=== PATIENT | male | born 1950 | race Caucasian/White ===

== ENCOUNTER 2023-04-02 06:13 | Day surgery (SDC) | payer MEDICARE, SELFPAY ==
[2023-04-02 06:40] VITALS: BMI 29.6
[2023-04-02 06:41] VITALS: BP 129/64; PULSE 65; RESP 18; TEMP 36.6; O2SAT 98
[2023-04-02 06:57] LABS: Glucose, Whole Blood 80 mg/dL (60-115)
[2023-04-02] MEDS: Lactated Ringers 1,000 ML 50 ML IVCONT (07:09)
--- NOTE | 2023-04-02 07:23 | P.CONAN_ITS ---
HPI - Anesthesia Eval Consult details Narrative: for colonoscopy FORMERLY [facility], [facility] Past Medical History Medical History (Updated 04/01/23 @ 13:43 by Ania Jaffe RN) CAD (coronary artery disease) Colon polyps Hyperlipidemia Prostate cancer Type 2 diabetes mellitus Narrative: CAD stable since stent. Last NTG a couple mo ago. Family History Family history of problems with anesthesia: No Surgical History Surgical History (Updated 04/02/23 @ 07:01 by Nadege Brennan RN) H/O colonoscopy History of tonsillectomy and adenoidectomy Hx of appendectomy Hx of wisdom tooth extraction Stented coronary artery History of Problems with Anesthesia: No Social History Social History Patient Tobacco Use Status: Never used Tobacco Are you DNR?: No Advance Directives: No Advance Directives Information Provided: Yes Meds Allergies Allergy/AdvReac Type Severity Reaction Status Date / Time cephalexin [From Keflex] Allergy Unknown Verified 04/01/23 13:43 Penicillins [PCN] Allergy Unknown Verified 04/01/23 13:43 Active Medications: Current Medications Lactated Ringer's (Lr) 1,000 mls @ 50 mls/hr IVCONT .Q20H ANABELLA Last Admin: 04/02/23 07:09 Dose: 50 mls/hr Home Medications Medication Instructions Recorded Confirmed Last Taken Type alfuzosin 10 mg tablet,extended 20 mg PO DAILY 04/01/23 04/01/23 04/02/23 History release 24 hr clopidogrel 75 mg tablet 75 mg PO DAILY 04/01/23 04/01/23 03/26/23 History cyanocobalamin (vitamin B-12) 1,000 mcg PO DAILY 04/01/23 04/01/23 Unknown History 1,000 mcg tablet fluticasone propionate 50 1 spray intranasal DAILY 04/01/23 04/01/23 Unknown History mcg/actuation nasal spray,suspension glimepiride 1 mg tablet 1 mg PO BID 04/01/23 04/01/23 Unknown History isosorbide mononitrate 30 mg 15 mg PO QAM 04/01/23 04/01/23 Unknown History tablet,extended release 24 hr metformin 500 mg tablet 500 mg PO BID 04/01/23 04/01/23 Unknown History metoprolol succinate 25 mg 12.5 mg PO DAILY 04/01/23 04/01/23 04/02/23 History tablet,extended release 24 hr nitroglycerin 0.4 mg sublingual mg sublingual 04/01/23 Unknown History tablet pravastatin 10 mg tablet 10 mg PO DAILY 04/01/23 04/01/23 Unknown History triamcinolone acetonide 0.1 % appl topical BID 04/01/23 Unknown History topical cream aspirin 81 mg tablet,delayed mg 04/02/23 04/02/23 03/26/23 History release Exam Exam Date and Time: April 02, 202323 Height,Weight and Vital Signs: Height 5 ft 10 in Weight 93.44 kg Last Vital Signs Temp 98 F 04/02/23 06:41 Pulse 65 04/02/23 06:41 Resp 18 04/02/23 06:41 BP 129/64 04/02/23 06:41 Pulse Ox 98 04/02/23 06:41 O2 Del Method Room Air 04/02/23 06:41 Pertinent Lab Results Pertinent Lab Results: Laboratory Tests 04/02/23 06:53 POC Glucose 80 Airway Mallampati Class: II TM Dist: >3cm Neck ROM: Full Partial: Lower Heart: ok. Lungs: ok. Assessment and Plan Assessment Anesthesia Assessment: Anesthesia Plan Discussed and Chart Reviewed Final Anesthetic Review Family History of Problems with Anesthesia: No History of Problems with Anesthesia: No NPO: Yes ASA Class: III Final Preanesthetic Review: No Changes in Pt Med Stat, Meds/Allgs Chart Reviewed, Consent Obtained/Reviewed and Anes Risks/Benef Reviewed Patient Risk: High Procedure Risk: Low Anesthetic Plan Anesthetic Plan: MAC: and Agree w/ Assess. and Plan Disposition: Standard PACU
--- NOTE | 2023-04-02 07:29 | P.HPSUR_ITS ---
Pre-Procedural Eval Section A Date of Service: 04/02/23 Section B Chief Complaint: screening Details of Present Illness: see H&P no changes Relevant Family History (Specify if Yes): No Relevant Social History: None Present Medications: None Medical History: No relevant PMH History of Previous Operations: No relevant previous surgery Allergies: Allergies Allergy/AdvReac Type Severity Reaction Status Date / Time cephalexin [From Keflex] Allergy Unknown Verified 04/01/23 13:43 Penicillins [PCN] Allergy Unknown Verified 04/01/23 13:43 Review of Systems Sugical H&P ROS: Negative: Constitution, Cardiovascular, Respiratory, Neurolog ical, Psychiatric, Hem-Onc, Allergic/Immunologic, Gastrointestinal, Genitourinary, Musculoskeletal, Integumentary, Endocrine and Eyes/Ears/Nose/Throat Exam Surgical H&P Exam: Normal: HEENT, Normal: Heart, Normal: Lungs, Normal: Extremities, Normal: Abdomen, Normal: Skin and Normal: Neurological Plan Diagnosis/Plan: Unchanged I have reviewed the history and physical and performed a pertinent physical examination on my patient. No changes have occurred unless specified. Time Spent With Patient Time: Total time managing care of this patient today ____ minutes.
--- NOTE | 2023-04-02 07:54 | P.BOP_ITS ---
Brief Operative Note Date of Service: 04/02/23 Pre-op diagnosis: screening Post-op diagnosis: same Procedure: colonoscopy Surgeon: Brent Zuleta Anesthesia: MAC Was an Shuttlecock Assembler used for this Procedure?: No Estimated blood loss (mL): 0 Pathology: other Condition: stable Disposition: PACU
[2023-04-02 07:59] VITALS: BP 106/50; PULSE 56; RESP 18; TEMP 36.9; O2SAT 96
[2023-04-02 08:13] VITALS: BP 119/61; PULSE 60; RESP 17; TEMP 36.7; O2SAT 96
--- NOTE | 2023-04-02 08:19 | OP_ITS ---
DATE OF SERVICE: 04/02/2023 SURGEON: Brent Zuleta MD INDICATIONS: Colon cancer screening and prior history of adenomatous colon polyps. PREOPERATIVE DIAGNOSIS: POSTOPERATIVE DIAGNOSIS: PROCEDURE PERFORMED: Colonoscopy to terminal ileum. ESTIMATED BLOOD LOSS: COMPLICATIONS: ANESTHESIA: Monitored anesthesia care. ASSISTANTS: SPECIMENS: DESCRIPTION OF PROCEDURE: A history and physical were performed. The risks and benefits of the procedure were explained to the patient. Informed consent was obtained. The patient was placed in the left lateral decubitus position. A digital rectal exam was performed and was found to be normal. The Olympus pediatric video colonoscope was introduced into the rectum and advanced to the cecum without difficulty. The cecum was identified by transillumination, palpation, and identification of ileocecal valve. Examination was performed. The scope was removed. He tolerated the procedure well and was returned to the recovery room in stable condition. FINDINGS: The terminal ileum was examined and appeared normal. Visualized colonic mucosa was normal. The quality of the prep was good. No polyps were identified. There were changes of radiation proctitis from his prior external beam radiation for prostate cancer with no active bleeding. No therapy was performed. There was mild sigmoid diverticulosis. IMPRESSION: Unremarkable colonoscopy. RECOMMENDATION: 1. Follow up as needed. 2. Repeat colonoscopy is optional based on the patient's age. MD YENNY Cowan/MERI / [phone]
== END 2023-04-02 09:30 | disposition home or self-care (01) ==
PROVIDERS: PCP Internal Medicine; Visit Provider Internal Medicine Gastroenterology
PROC: 0DJD8ZZ Inspection of Lower Intestinal Tract, Via Natural or Artificial Opening Endoscopic (ICD-10-PCS; CPT 45378; principal; 2023-04-02 07:30)
DX: Z12.11 Encounter for screening for malignant neoplasm of colon (principal); Z86.010 Personal history of colon polyps; C61 Malignant neoplasm of prostate; K62.7 Radiation proctitis; K57.30 Diverticulosis of large intestine without perforation or abscess without bleeding; I25.10 Atherosclerotic heart disease of native coronary artery without angina pectoris; Z95.5 Presence of coronary angioplasty implant and graft; E78.5 Hyperlipidemia, unspecified; E11.9 Type 2 diabetes mellitus without complications; Z79.84 Long term (current) use of oral hypoglycemic drugs; Z79.01 Long term (current) use of anticoagulants; Z79.82 Long term (current) use of aspirin; Z79.899 Other long term (current) drug therapy; Z88.0 Allergy status to penicillin; Z88.1 Allergy status to other antibiotic agents
CPT/HCPCS: G0105; 82947; J0330

== ENCOUNTER 2023-12-04 14:30 | Outpatient (AMB) | payer MEDICARE, SELFPAY ==
--- NOTE | 2023-12-04 14:42 | MHC.OFFVIS ---
Intake Intake Visit Reasons: Re-establish care for Prostate Cancer Intake Note: NEW Patient presents today to re-establish care for Prostate Cancer Meds- Alfuzosin, Allergies to Antibiotic- Cephalexin, Penicillins Blood Thinner- Aspirin Patient stated he feels pressure pain when he touch the Lower abdomen ( bladder area) Dining Room Helper Required: No Accompanied by: Self / Same As Patient Allergies cephalexin [From Keflex] Allergy (Verified 12/04/23 14:53) Unknown Penicillins [PCN] Allergy (Verified 12/04/23 14:53) Unknown HPI HPI Comments History of Present Illness Details Mickey is a pleasant male. He is a patient of . He is seen for the following urologic conditions - prostate cancer - radiation cystitis with urgency and frequency Primary concern is bladder spasm Has nocturia times 3-4 Urinary urgency and frequency during the day Likely secondary to radiation cystitis Trial anticholinergic UA today negative blood, negative leukocytes, negative nitrites. No evidence of infection Prostate cancer - grade group 3 T3 disease on MRI initial therapy external beam radiation 03/20 DFCI PSA at diagnosis 6.5 MRI at diagnosis 3 cm peripheral zone midline PI-RADS 5 with seminal vesicle extension Biopsy 09/20 7 cores positive, [place] 3 + 4 Initial therapy - EXBRT 03/20 7920 Gy prostate [address] Ashton - concurrent hormone therapy - therapy course halted early secondary to cardiac manifestations of hormone suppression PSA - 11/22 0.26 T 360 PFSH Medical History (Updated 12/04/23 @ 15:19 by Ric Romero MD) Colon polyps Hyperlipidemia Type 2 diabetes mellitus CAD (coronary artery disease) Prostate cancer Surgical History Hx of wisdom tooth extraction History of tonsillectomy and adenoidectomy Hx of appendectomy Stented coronary artery H/O colonoscopy Social History Patient Tobacco Use Status: Never used Tobacco Review of Systems Const Denies chills and Denies fever(s) Card Reports no additional complaints and Denies syncope Resp Denies cough GI Denies abdominal pain and Denies heartburn Reports as per HPI and Denies change in libido Neuro Denies syncope Psych Denies change in libido Endo Denies change in libido Physical Exam Const General: cooperative, healthy appearing, comfortable and no acute distress Orientation/consciousness: patient oriented x3 HEENT Face and sinus: Yes normal facial exam Mouth: moist mucous membranes Neck Neck: Yes normal visual inspection, Yes full ROM and Yes trachea midline Chest Chest palpation & inspection: normal inspection of the chest Resp Effort & Inspection: normal respiratory effort, able to speak in complete sentences and no respiratory distress GI Inspection: Yes normal to inspection Back/Spine/Pelvis Cervical Spine: normal cervical lordosis Thoracic/Lumbar Spine: thoracic and lumbar spine normal to inspection Skin General skin exam: no rashes or lesions noted Neuro General: patient oriented x3, gait normal, tone normal and moves all extremities Extrem General: Yes normal to inspection and Yes capillary refill normal Results AMB Urinalysis, Automated UA Leukoctes 0 Freddy/uL Last Edit by Sara Peralta CMA on 12/04/23 14:56 UA Nitrite Negative Last Edit by Sara Peralta CMA on 12/04/23 14:56 UA Urobilinogen 0.2 mg/dL Last Edit by Sara Peralta CMA on 12/04/23 14:56 UA Protein 0 mg/dL Last Edit by Sara Peralta CMA on 12/04/23 14:56 UA pH 7.0 Last Edit by Sara Peralta CMA on 12/04/23 14:56 UA Blood 0 Chuy/uL Last Edit by Sara ePralta CMA on 12/04/23 14:56 UA Specific [place] 1.005 Last Edit by Sara Peralta CMA on 12/04/23 14:56 UA Ketone Negative Last Edit by Sara Peralta CMA on 12/04/23 14:56 UA Bilirubin 0 mg/dL Last Edit by Sara Peralta CMA on 12/04/23 14:56 UA Glucose 0 mg/dL Last Edit by Sara Peralta [facility] on 12/04/23 14:56 Results Reviewed Results Reviewed: Laboratory Last Values Urine pH (Auto) 7.0 12/04/23 14:54 Specific [place] (Auto) 1.005 12/04/23 14:54 Urine Protein (Auto) 0 mg/dL 12/04/23 14:54 Glucose (UA)(Auto) 0 mg/dL 12/04/23 14:54 Urine Ketones (Auto) Negative 12/04/23 14:54 Urine Blood (Auto) 0 Chuy/uL 12/04/23 14:54 Urine Nitrite (Auto) Negative 12/04/23 14:54 Urine Bilirubin (Auto) 0 mg/dL 12/04/23 14:54 Urine Urobilinogen (Auto) 0.2 mg/dL 12/04/23 14:54 Leukocyte Esterase (Auto) 0 Freddy/uL 12/04/23 14:54 Assessment & Plan Assessment & Plan (1) Prostate cancer: Code(s): C61 - Malignant neoplasm of prostate (2) Nocturia more than twice per night: Code(s): R35.1 - Nocturia (3) Urinary urgency: Code(s): R39.15 - Urgency of urination Plan Trial anticholinergic for bladder spasm 2 month follow-up PVR and UA Orders: Orders AMB Urinalysis Automated Today R33.9 - Retention of urine, unspecified Medications: New oxybutynin chloride ER 5 mg PO DAILY 30 days 30 tabs 1RF N32.81 - Overactive bladder, R39.15 - Urgency of urination Patient Instructions: Imaging studies, laboratory and physical exam results were discussed and reviewed in detail. No major barriers to patient understanding were identified. An opportunity to ask questions regarding the treatment plan was provided. All questions were answered. The patient expressed understanding and agreement with the above treatment plan. The patient is aware they should contact our office by phone for worsening of their current condition or the appearance of new urologic symptoms. Compliance is encouraged with any medications and followup testing that is ordered. It is a privilege to participate in the urologic care of your patient. If you have any questions or concerns regarding treatment for the above conditions, or other urologic issues, please do not hesitate to contact me. The office telephone contact is [phone]. This note is constructed using voice recognition software. While every effort has been made to ensure accuracy sausage wrapper errors may have been included. Yours sincerely, Dr Ric Romero MD, PEDRO [facility] - Urology Providers of Expert, Compassionate Care for the Genitourinary System Coding Level of Care Code New Pt Level 4 (43115) Diagnoses Prostate cancer C61 Nocturia more than twice per night R35.1 Urinary urgency R39.15
== END 2023-12-04 15:21 | disposition home or self-care (01) ==
PROVIDERS: PCP Internal Medicine; Visit Provider Urology
DX: C61 Malignant neoplasm of prostate (principal); R35.1 Nocturia; R39.15 Urgency of urination; R33.9 Retention of urine, unspecified
CPT/HCPCS: 99204

== ENCOUNTER → 2023-12-04 14:30 | Outpatient (BNVA) | payer MEDICARE, SELFPAY | PROVIDERS: PCP Internal Medicine; Visit Provider Urology | DX: C61 Malignant neoplasm of prostate (principal); R35.1 Nocturia; R39.15 Urgency of urination | CPT/HCPCS: 81003; 99202 ==

== ENCOUNTER 2024-02-04 10:32 | Outpatient (AMB) | payer MEDICARE, SELFPAY ==
--- NOTE | 2024-02-04 11:10 | MHC.OFFVIS ---
Intake Visit Reasons: Two month follow-up UA, PVR Intake Note: Patient is Present for PVR/ Urology Med: Oxybutynin Antibiotic Allergy: Pencillins, Cephalexin Blood Thinner: Aspirin, Clopidogrel Todays PVR: 0 Patient is requesting a refill on oxybutynin states the medication is working. Patient would also like to have the Dosage higer Allergies cephalexin [From Keflex] Allergy (Verified 12/04/23 14:53) Unknown Penicillins [PCN] Allergy (Verified 12/04/23 14:53) Unknown Medication List - Last Reconciled 02/04/24 by Ric Romero MD alfuzosin ER 20 mg PO DAILY aspirin mg clopidogrel 75 mg PO DAILY cyanocobalamin (vitamin B-12) 1,000 mcg PO DAILY fluticasone propionate 50 mcg/actuation 1 spray intranasal DAILY glimepiride 1 mg PO BID isosorbide mononitrate ER 15 mg PO QAM metformin 500 mg PO BID metoprolol succinate ER 12.5 mg PO DAILY nitroglycerin mg sublingual oxybutynin chloride ER 10 mg PO DAILY 90 days pravastatin 10 mg PO DAILY triamcinolone acetonide 0.1% appl topical BID HPI Comments Details: Mickey is a pleasant male. He is a patient of . He is seen for the following urologic conditions - prostate cancer - radiation cystitis with urgency and frequency - background diabetes Good effect from medication Would prefer higher dose Refill with 10 mg Follow-up from trial of anticholinergic Nocturia 3-4 Urge and frequency during the day Presumed radiation cystitis UA today negative blood, negative leukocytes, negative nitrites. No evidence of infection Prostate cancer - grade group 3 T3 disease on MRI initial therapy external beam radiation 03/20 DFCI PSA at diagnosis 6.5 MRI at diagnosis 3 cm peripheral zone midline PI-RADS 5 with seminal vesicle extension Biopsy 09/20 7 cores positive, [place] 3 + 4 Initial therapy - EXBRT 03/20 7920 Gy prostate [address] Ashton - concurrent hormone therapy - therapy course halted early secondary to cardiac manifestations of hormone suppression PSA - 11/22 0.26 T 360 PFSH Medical History (Updated 12/04/23 @ 15:19 by Ric Romero MD) Colon polyps Hyperlipidemia Type 2 diabetes mellitus CAD (coronary artery disease) Prostate cancer Surgical History Hx of wisdom tooth extraction History of tonsillectomy and adenoidectomy Hx of appendectomy Stented coronary artery H/O colonoscopy Social History Patient Tobacco Use Status: Never used Tobacco Review of Systems Const Denies chills and Denies fever(s) Card Reports no additional complaints and Denies syncope Resp Denies cough GI Denies abdominal pain and Denies heartburn Reports as per HPI and Denies change in libido Neuro Denies syncope Psych Denies change in libido Endo Denies change in libido Physical Exam Const General: cooperative, healthy appearing, comfortable and no acute distress Orientation/consciousness: patient oriented x3 HEENT Face and sinus: Yes normal facial exam Mouth: moist mucous membranes Neck Neck: Yes normal visual inspection, Yes full ROM and Yes trachea midline Chest Chest palpation & inspection: normal inspection of the chest Resp Effort & Inspection: normal respiratory effort, able to speak in complete sentences and no respiratory distress GI Inspection: Yes normal to inspection Back/Spine/Pelvis Cervical Spine: normal cervical lordosis Thoracic/Lumbar Spine: thoracic and lumbar spine normal to inspection Skin General skin exam: no rashes or lesions noted Neuro General: patient oriented x3, gait normal, tone normal and moves all extremities Extrem General: Yes normal to inspection and Yes capillary refill normal Office Procedures Post Void Residual Post Residual Void Post Void Residual (PVR): 0 [id number] Void Residual by ultrasound Assessment & Plan Assessment & Plan (1) Urinary urgency: Code(s): R39.15 - Urgency of urination Category: Medical (2) Prostate cancer: Code(s): C61 - Malignant neoplasm of prostate Category: Medical Plan Six-month follow-up on stronger dose oxybutynin Orders: Orders AMB Post Void Residual by ultrasound Today R39.15 - Urgency of urination Medications: Changed From oxybutynin chloride ER 5 mg PO DAILY 30 days 30 tabs 1RF N32.81 - Overactive bladder, R39.15 - Urgency of urination To oxybutynin chloride ER 10 mg PO DAILY 90 days 90 tabs 1RF N32.81 - Overactive bladder, R39.15 - Urgency of urination Patient Instructions: Imaging studies, laboratory and physical exam results were discussed and reviewed in detail. No major barriers to patient understanding were identified. An opportunity to ask questions regarding the treatment plan was provided. All questions were answered. The patient expressed understanding and agreement with the above treatment plan. The patient is aware they should contact our office by phone for worsening of their current condition or the appearance of new urologic symptoms. Compliance is encouraged with any medications and followup testing that is ordered. It is a privilege to participate in the urologic care of your patient. If you have any questions or concerns regarding treatment for the above conditions, or other urologic issues, please do not hesitate to contact me. The office telephone contact is [phone]. This note is constructed using voice recognition software. While every effort has been made to ensure accuracy bean sprout grower errors may have been included. Yours sincerely, Dr Ric Romero MD, PEDRO [facility] - Urology Providers of Expert, Compassionate Care for the Genitourinary System Coding Level of Care Code Est Pt Level 3 (65908) Diagnoses Urinary urgency R39.15 Prostate cancer C61 CPT Codes Post Residual Void - PVR CPT Code: 12101-Udsu Void Residual by ultrasound ([id number])
== END 2024-02-04 11:28 | disposition home or self-care (01) ==
PROVIDERS: PCP Internal Medicine; Visit Provider Urology
DX: R39.15 Urgency of urination (principal); C61 Malignant neoplasm of prostate
CPT/HCPCS: 99213

== ENCOUNTER → 2024-02-04 10:32 | Outpatient (BNVA) | payer MEDICARE, SELFPAY | PROVIDERS: PCP Internal Medicine; Visit Provider Urology | DX: R39.15 Urgency of urination (principal); C61 Malignant neoplasm of prostate; N32.81 Overactive bladder; Z79.899 Other long term (current) drug therapy | CPT/HCPCS: 51798; 99212 ==

== ENCOUNTER 2024-08-06 10:33 | Outpatient (AMB) | payer MEDICARE, SELFPAY ==
--- NOTE | 2024-08-06 10:33 | MHC.OFFVIS ---
Intake Visit Reasons: 1yr/PVR [phone] Intake Note: Patient is Present for 1Y PVR Urology Med: Oxybutynin Antibiotic Allergy: Pencillins, Cephalexin Blood Thinner: Aspirin, Clopidogrel Sr. Operations Manager Required: No Allergies cephalexin [From Keflex] Allergy (Verified 08/06/24 10:35) Unknown Penicillins [PCN] Allergy (Verified 08/06/24 10:35) Unknown HPI Comments Details: Mickey is a pleasant male. He is a patient of . He is seen for the following urologic conditions - prostate cancer - radiation cystitis with urgency and frequency - background diabetes Telemedicine Evaluation 15 min Consultation Flynn Efra Video Good effect from medication Will stay on higher 10 mg dosage of alfuzosin b.i.d. Has combination urgency frequency with weakness of stream secondary to radiation cystitis with diabetic cystopathy Follow-up from trial of anticholinergic Nocturia 3 down from 6 Urge and frequency during the day Presumed radiation cystitis UA today negative blood, negative leukocytes, negative nitrites. No evidence of infection Prostate cancer - grade group 3 T3 disease on MRI initial therapy external beam radiation 03/20 DFCI PSA at diagnosis 6.5 MRI at diagnosis 3 cm peripheral zone midline PI-RADS 5 with seminal vesicle extension Biopsy 09/20 7 cores positive, [place] 3 + 4 Initial therapy - EXBRT 03/20 7920 Gy prostate [address] Ashton - concurrent hormone therapy - therapy course halted early secondary to cardiac manifestations of hormone suppression PSA - 11/22 0.26 T 360, 02/23 PSA stable PFSH Medical History (Updated 12/04/23 @ 15:19 by Ric Romero MD) Colon polyps Hyperlipidemia Type 2 diabetes mellitus CAD (coronary artery disease) Prostate cancer Surgical History Hx of wisdom tooth extraction History of tonsillectomy and adenoidectomy Hx of appendectomy Stented coronary artery H/O colonoscopy Social History Patient Tobacco Use Status: Never used Tobacco Review of Systems Const All systems reviewed & are unremarkable except as noted in HPI and below Reports no additional complaints Resp Reports no additional complaints GI Reports no additional complaints Reports as per HPI Musc Reports no additional complaints Physical Exam Telemedicine evaluation Appropriate responses Regular breathing rate and rhythm HEENT Head: Yes normal to inspection Ears: hearing grossly normal bilaterally Eyes General: appearance normal, both eyes and all related structures Neck Neck: Yes normal visual inspection Chest Chest palpation & inspection: normal inspection of the chest Resp Effort & Inspection: normal respiratory effort and able to speak in complete sentences Telehealth Telehealth Telehealth Platform: Flynn Location of provider rendering services: practice address Location of patient: address on file Patient Identification confirmed using: Name, : Yes Telehealth method: video Patient verbally consented to treatment: Yes Patient verbally consented to billing insurance company: Yes Patient informed of any privacy concerns related to visit: Yes Minutes spent on Phone/Video with Pt.: 15 Assessment & Plan Assessment & Plan (1) Prostate cancer: Code(s): C61 - Malignant neoplasm of prostate Category: Medical (2) Urinary urgency: Code(s): R39.15 - Urgency of urination Category: Medical (3) Nocturia more than twice per night: Code(s): R35.1 - Nocturia Category: Medical Plan Six-month follow-up PVR Orders: Orders Prostate Specific Antigen 6 Months C61 - Malignant neoplasm of prostate Medications: Changed From alfuzosin ER 20 mg PO DAILY To alfuzosin ER 10 mg PO BID 180 tabs 1RF 90 days Refilled oxybutynin chloride ER 10 mg PO DAILY 90 tabs 1RF 90 days N32.81 - Overactive bladder, R39.15 - Urgency of urination Patient Instructions: Imaging studies, laboratory and physical exam results were discussed and reviewed in detail. No major barriers to patient understanding were identified. An opportunity to ask questions regarding the treatment plan was provided. All questions were answered. The patient expressed understanding and agreement with the above treatment plan. The patient is aware they should contact our office by phone for worsening of their current condition or the appearance of new urologic symptoms. Compliance is encouraged with any medications and followup testing that is ordered. It is a privilege to participate in the urologic care of your patient. If you have any questions or concerns regarding treatment for the above conditions, or other urologic issues, please do not hesitate to contact me. The office telephone contact is [phone]. This note is constructed using voice recognition software. While every effort has been made to ensure accuracy interior mechanic errors may have been included. Yours sincerely, Dr Ric Romero MD, PEDRO [facility] - Urology Providers of Expert, Compassionate Care for the Genitourinary System Coding Level of Care Code Tele Est Pt Level 3 (71062) Diagnoses Prostate cancer C61 Urinary urgency R39.15 Nocturia more than twice per night R35.1
== END 2024-08-06 13:45 | disposition home or self-care (01) ==
LOC: HO.HUSH 10:33
PROVIDERS: PCP Internal Medicine; Visit Provider Urology
DX: C61 Malignant neoplasm of prostate (principal); R39.15 Urgency of urination; R35.1 Nocturia
CPT/HCPCS: 99213

== ENCOUNTER → 2024-08-06 10:33 | Outpatient (BNVA) | payer MEDICARE, SELFPAY | PROVIDERS: PCP Internal Medicine; Visit Provider Urology ==

== ENCOUNTER 2025-02-05 09:31 | Outpatient (AMB) | payer MEDICARE, SELFPAY ==
--- NOTE | 2025-02-05 09:35 | A.OFFVIS_ITS ---
Intake Visit Reasons: 6m f/u office PVR Intake Note: Patient is Present for 6 month follow up/PVR Urology Med: Oxybutynin Antibiotic Allergy: Pencillins, Cephalexin Blood Thinner: Aspirin, Clopidogrel PVR:54ml Allergies cephalexin [From Keflex] Allergy (Verified 02/05/25 09:41) Unknown Penicillins [PCN] Allergy (Verified 02/05/25 09:41) Unknown HPI Comments Details: Mickey is a pleasant male. He is a patient of . He is seen for the following urologic conditions - prostate cancer - radiation cystitis with urgency and frequency - background diabetes Six-month follow-up Remains on alfuzosin 10 mg b.i.d. Has combination urgency frequency with weakness of stream secondary to radiation cystitis with diabetic cystopathy Urge and frequency during the day Presumed radiation cystitis Will add beta agonist such as Myrbetriq or Gemtesa Urinary Symptoms Review - Weak urine stream due to diabetic cystopathy. - Urgency issues managed with alfuzosin and oxybutynin. - Nocturia with the patient waking up three times per night, which is an improvement from six times. - Radiative cystitis causing irritability in the bladder. - Use of alfuzosin 10 mg twice daily and oxybutynin 10 mg once daily. - Blood presence due to anticoagulation therapy could exacerbate irritability. UA today negative blood, negative leukocytes, negative nitrites. No evidence of infection Consider checking testosterone at next lab work Prostate cancer - grade group 3 T3 disease on MRI initial therapy external beam radiation 03/20 DFCI PSA at diagnosis 6.5 MRI at diagnosis 3 cm peripheral zone midline PI-RADS 5 with seminal vesicle extension Biopsy 09/20 7 cores positive, [place] 3 + 4 Initial therapy - EXBRT 03/20 7920 Gy prostate 5040 Gy pelvis [facility] - concurrent hormone therapy - therapy course halted early secondary to cardiac manifestations of hormone suppression PSA - 11/22 0.26 T 360, 02/23 PSA stable PFSH Medical History Colon polyps Hyperlipidemia Type 2 diabetes mellitus CAD (coronary artery disease) Prostate cancer Surgical History Hx of wisdom tooth extraction History of tonsillectomy and adenoidectomy Hx of appendectomy Stented coronary artery H/O colonoscopy Social History Patient Tobacco Use Status: Never used Tobacco Review of Systems Const Denies chills and Denies fever(s) Card Reports no additional complaints and Denies syncope Resp Denies cough GI Denies abdominal pain and Denies heartburn Reports as per HPI and Denies change in libido Neuro Denies syncope Psych Denies change in libido Endo Denies change in libido Physical Exam Const General: cooperative, healthy appearing, comfortable and no acute distress Orientation/consciousness: patient oriented x3 HEENT Face and sinus: Yes normal facial exam Mouth: moist mucous membranes Neck Neck: Yes normal visual inspection, Yes full ROM and Yes trachea midline Chest Chest palpation & inspection: normal inspection of the chest Resp Effort & Inspection: normal respiratory effort, able to speak in complete sentences and no respiratory distress GI Inspection: Yes normal to inspection Back/Spine/Pelvis Cervical Spine: normal cervical lordosis Thoracic/Lumbar Spine: thoracic and lumbar spine normal to inspection Skin General skin exam: no rashes or lesions noted Neuro General: patient oriented x3, gait normal, tone normal and moves all extremities Extrem General: Yes normal to inspection and Yes capillary refill normal Assessment & Plan Assessment & Plan (1) Prostate cancer: Code(s): C61 - Malignant neoplasm of prostate Category: Medical (2) Urinary urgency: Code(s): R39.15 - Urgency of urination Category: Medical (3) Nocturia more than twice per night: Code(s): R35.1 - Nocturia Category: Medical (4) Radiation cystitis: Code(s): N30.40 - Irradiation cystitis without hematuria Category: Medical Plan 1. Diabetes Mellitus With Diabetic Cystopathy Continue alfuzosin and oxybutynin. Plan a regimen change post-75 for cognitive side effects. Nocturia reduced from 6 to 3 nightly. 2. Radiation Cystitis Surveillance, consider laser therapy. 3. Prostate Cancer Maintain vigilance over PSA levels. Avoid hormone therapies causing adverse effects. Discussion Notes During this visit, I discussed the management of the patient's urinary symptoms due to diabetic cystopathy and urgency issues. The patient is currently on alfuzosin and oxybutynin, and there has been a noted improvement in nocturia. Potential adverse cognitive effects prompted a planned reevaluation of the drug regimen as the patient approaches 75. We contemplated adding mirabegron for better control of their symptoms. Concerns about cognitive side effects were highlighted and consent was obtained to proceed with the new medication trial. We also discussed dealing with ongoing radiation cystitis challenges, with current strategies non-invasive due to anticoagulation therapy. Therefore, monitoring symptomatically is a prudent approach. I addressed their continued prostate cancer management via observation and the lack of pursuit for additional hormonal treatments, given past negative outcomes. Finally, we contemplated potential cardiac evaluations and possible impacts on current management due to polypharmacy. Recommendations were made with all risks, benefits, and limitations expressly considered with the patient in agreement. Patient Instructions - Continue taking alfuzosin and oxybutynin as prescribed. - Monitor urinary symptoms and increased frequency of nocturia; report significant changes. - Try the new medication, mirabegron, as directed. - Be cautious about any new cognitive side effects. - Attend regular follow-up appointments as suggested. - Seek medical care if experiencing increased bleeding or new concerning symptoms. Medications: New vibegron 75 mg PO DAILY 30 days 30 tabs 2RF R39.15 - Urgency of urination Refilled alfuzosin ER 10 mg PO BID 90 days 180 tabs 1RF R39.15 - Urgency of urination oxybutynin chloride ER 10 mg PO DAILY 90 days 90 tabs 1RF N32.81 - Overactive bladder, R39.15 - Urgency of urination Patient Instructions: This note is constructed using voice recognition software. While every effort has been made to ensure accuracy respiratory therapist assistant errors may have been included. Imaging studies, laboratory and physical exam results were discussed and reviewed in detail. No major barriers to patient understanding were identified. An opportunity to ask questions regarding the treatment plan was provided. All questions were answered. The patient expressed understanding and agreement with the above treatment plan. The patient is aware they should contact our office by phone for worsening of their current condition or the appearance of new urologic symptoms. Compliance i s encouraged with any medications and followup testing that is ordered. It is a privilege to participate in the urologic care of your patient. If you have any questions or concerns regarding treatment for the above conditions, or other urologic issues, please do not hesitate to contact me. The office telephone contact is [phone]. Sincerely, Dr Ric Romero MD, PEDRO [facility] - Urology Compassionate Specialist Care for the Genitourinary System Coding Level of Care Code Est Pt Level 4 (74004) Complex EM visit Add On G2211 Diagnoses Prostate cancer C61 Urinary urgency R39.15 Nocturia more than twice per night R35.1 Radiation cystitis N30.40
--- OUTSIDE RECORDS SUMMARY | 2025-02-05 10:06 | XMS_ITS | Patient Health Record ---
Author Organization [facility] Address [address] [place] [address] Care Team Providers Care Front End Engineer Name Role Phone Josué ULRICH, Burak Primary Care Provider Brent Heredia Jr Unavailable Brent Zuleta Unavailable Unavailable Allergies Allergen (clinical drug ingredient) Drug/Non Drug Allergy documented on EMR Reaction Allergy Type Onset Date Status Penicillin Unknown Drug Allergy Active Keflex Unknown Drug Allergy Active Reason For Referral No Information Medications Medication SIG (Take, Route, Frequency, Duration) Notes Start Date End Date Status Fluticasone Propionate 50 MCG/ACT USE 1 SPRAY(S) IN EACH NOSTRIL ONCE DAILY Nasal for 60 Active Alfuzosin HCl ER 10 MG Oral for 90 Active MiraLax (colon prep) 17 GM/SCOOP mixed with Gatorade or Crystal Light Orally begin at 5:00 p.m. the day before the procedure for 1 day 12/31/2022 Active Clopidogrel Bisulfate 75 MG Oral for 90 Active Triamcinolone Acetonide 0.1 % APPLY TOPICALLY TO LEGS TWICE DAILY FOR 5 DAYS External for 5 Active Metoprolol Succinate ER 25 MG TAKE 1/2 (ONE-HALF) TABLET BY MOUTH ONCE DAILY Oral for 90 Active metFORMIN HCl 500 MG Oral for 90 Active Isosorbide Mononitrate ER 30 MG Oral for 90 Active Anusol-HC 2.5 % 1 application rectal ly Twice a day for 30 days 11/27/2021 Active Nitroglycerin 0.4 MG DISSOLVE ONE TABLET UNDER THE TONGUE EVERY 5 MINUTES NEEDED FOR CHEST PAIN. DO NOT EXCEED A TOTAL OF 3 DOSES IN 15 MINUTES Sublingual for 30 Active Pravastatin Sodium 10 MG TAKE 1 TABLET B Y MOUTH ONCE DAILY FOR 90 DAYS Oral for 90 Active Glimepiride 1 MG TAKE 1 TABLET BY MARISELA TWICE DAILY BEFORE MEAL(S) Diagnosis Unavailable Oral for 90 Active Vitamin B-12 1000 MCG TAKE 1 TABLET BY M OUTH ONCE DAILY FOR 90 DAYS Oral for 90 Active Immunizations Vaccine Route Administration Date Status Comme nts Influenza Unknown 07/24/2022 Administered Social History Tobacco Use: Social History Observation Description Date Details (start date - stop date) Never Smoker NA - NA Tobacco Use/Smoking Question Answer Notes Patient is a nonsmoker Alcohol Screen Question Answer Notes Did you have a drink contain ing alcohol in the past year? Yes How often did you have a dri nk containing alcohol in the past year? Monthly or less (1 point) How many drinks did you have on a typical day when you were drinking in the past year? 1 or 2 drinks (0 point) How often did you have 6 or more drinks on one occasion in the past year? Never (0 point) Points 1 Interpretation Negative Problems Problem Type SNOMED Code ICD Code Onset Dates Problem Status W/U Status Risk Notes Problem [id number] Colon cancer screening (Z12.11) Active confirmed Problem [id number] Rectal bleeding (K62.5) Active confirmed Plan Of Treatment Future Test Test Name Order Date COLONOSCOPY 12/31/2022 Insurance Providers Payer Name Payer Address Payer Phone Subscriber Number Group Number Insured Name Patient Relationship to Insured Coverage Start Date Coverage End Date MEDICARE OF [place] [address] [place] [address] [id number] GRETCHEN MEJIA Self - patient is the insured MEDEX ATTN CLAIMS [address] [place] [address] [id number] GRETCHEN MEJIA Self - patient is the insured Medical (General) History Medical History History ICD Code prostate cancer, XRT and Lup gia, Lupron stopped due to coronary artery disease Coronary artery disease with history of stent placement 10/24 Diabetes mellitus type 2 Hyperlipidemia Colon polyps, colonoscopy 08/15/17, tubu lar adenoma, five-year followup Surgical History Surgery Date(Month/Year) stent put in-cardiac catherization 2021
== END 2025-02-05 10:09 | disposition home or self-care (01) ==
LOC: HO.HUSH 09:32
PROVIDERS: PCP Internal Medicine; Visit Provider Urology
DX: C61 Malignant neoplasm of prostate (principal); R39.15 Urgency of urination; R35.1 Nocturia; N30.40 Irradiation cystitis without hematuria
CPT/HCPCS: 99214; G2211

== ENCOUNTER → 2025-02-05 09:31 | Outpatient (BNVA) | payer MEDICARE, SELFPAY | PROVIDERS: PCP Internal Medicine; Visit Provider Urology | DX: C61 Malignant neoplasm of prostate (principal); N30.40 Irradiation cystitis without hematuria; R39.15 Urgency of urination; R35.1 Nocturia | CPT/HCPCS: 99212 ==

== ENCOUNTER 2025-05-12 09:50 | Outpatient (AMB) | payer MEDICARE, SELFPAY ==
--- NOTE | 2025-05-12 09:51 | A.OFFVIS_ITS ---
Intake Visit Reasons: 3m f/u Intake Note: patient presents today for: telehealth 3mo follow up urology medications: alfuzosin, oxybutynin blood thinners: aspirin, clopidogrel Clinical Molecular Geneticist Required: No Accompanied by: Self / Same As Patient Allergies cephalexin (From Keflex) Allergy (Verified 05/12/25 09:52) Unknown Penicillins (PCN) Allergy (Verified 05/12/25 09:52) Unknown HPI Comments Details: Mickey is a pleasant male. He is a patient of . He is seen for the following urologic conditions - prostate cancer - radiation cystitis with urgency and frequency - background diabetes Telemedicine Evaluation 15 min Consultation [employer] Myrbetriq may be too effective Try reducing to Saturday, Saturday, Saturday Three-month follow-up lab work Three-month follow-up urgency and frequency radiation cystitis with diabetes Baseline had been on alfuzosin Beta agonist had been added - Myrbetriq 25 mg Urinary Symptoms Review - Weak urine stream due to diabetic cystopathy. - Urgency issues managed with alfuzosin and oxybutynin. - Nocturia with the patient waking up three times per night, which is an improvement from six times. - Radiative cystitis causing irritability in the bladder. - Use of alfuzosin 10 mg twice daily and oxybutynin 10 mg once daily. - Blood presence due to anticoagulation therapy could exacerbate irritability. UA today negative blood, negative leukocytes, negative nitrites. No evidence of infection Consider checking testosterone at next lab work Prostate cancer - grade group 3 T3 disease on MRI initial therapy external beam radiation 03/20 DFCI PSA at diagnosis 6.5 MRI at diagnosis 3 cm peripheral zone midline PI-RADS 5 with seminal vesicle extension Biopsy 09/20 7 cores positive, [place] 3 + 4 Initial therapy - EXBRT 03/20 7920 Gy prostate 5040 Gy pelvis [facility] - concurrent hormone therapy - therapy course halted early secondary to cardiac manifestations of hormone suppression PSA - 11/22 0.26 T 360, 02/23 PSA stable PFSH Medical History Colon polyps Hyperlipidemia Type 2 diabetes mellitus CAD (coronary artery disease) Prostate cancer Surgical History Hx of wisdom tooth extraction History of tonsillectomy and adenoidectomy Hx of appendectomy Stented coronary artery H/O colonoscopy Social History Patient Tobacco Use Status: Never used Tobacco Review of Systems Const All systems reviewed & are unremarkable except as noted in HPI and below Reports no additional complaints Resp Reports no additional complaints GI Reports no additional complaints Reports as per HPI Musc Reports no additional complaints Physical Exam Telemedicine evaluation Appropriate responses Regular breathing rate and rhythm HEENT Head: Yes normal to inspection Ears: hearing grossly normal bilaterally Eyes General: appearance normal, both eyes and all related structures Neck Neck: Yes normal visual inspection Chest Chest palpation & inspection: normal inspection of the chest Resp Effort & Inspection: normal respiratory effort and able to speak in complete sentences Telehealth Telehealth Telehealth Platform: [employer] Location of provider rendering services: practice address Location of patient: address on file Patient Identification confirmed using: Name, : Yes Telehealth method: video Patient verbally consented to treatment: Yes Patient verbally consented to billing insurance company: Yes Patient informed of any privacy concerns related to visit: Yes Assessment & Plan Assessment & Plan (1) Radiation cystitis: Code(s): N30.40 - Irradiation cystitis without hematuria Category: Medical (2) Nocturia more than twice per night: Code(s): R35.1 - Nocturia Category: Medical (3) Urinary urgency: Code(s): R39.15 - Urgency of urination Category: Medical Plan Three-month follow-up lab work office Orders: Orders Prostate Specific Antigen 3 Months C61 - Malignant neoplasm of prostate Testosterone, Total 3 Months C61 - Malignant neoplasm of prostate Patient Instructions: This note is constructed using voice recognition software. While every effort has been made to ensure accuracy company truck driver errors may have been included. Imaging studies, laboratory and physical exam results were discussed and reviewed in detail. No major barriers to patient understanding were identified. An opportunity to ask questions regarding the treatment plan was provided. All questions were answered. The patient expressed understanding and agreement with the above treatment plan. The patient is aware they should contact our office by phone for worsening of their current condition or the appearance of new urologic symptoms. Compliance is encouraged with any medications and followup testing that is ordered. It is a privilege to participate in the urologic care of your patient. If you h ave any questions or concerns regarding treatment for the above conditions, or other urologic issues, please do not hesitate to contact me. The office telephone contact is [phone]. Sincerely, Dr Ric Romero MD, PEDRO [facility] - Urology Compassionate Specialist Care for the Genitourinary System Coding Level of Care Code Tele Est Pt Level 3 (60550) Complex EM visit Add On G2211 Diagnoses Radiation cystitis N30.40 Nocturia more than twice per night R35.1 Urinary urgency R39.15
--- OUTSIDE RECORDS SUMMARY | 2025-05-12 11:50 | XMS_ITS | Patient Health Record ---
Author Organization [facility] Address [address] [place] [address] Care Team Providers Care Manager Servicing Name Role Phone Josué ULRICH, Burak Primary [...] Problem Status W/U Status Risk Notes Problem [id number] Colon cancer screening (Z12.11) Active confirmed Problem 13676353 Rectal bleeding (K62.5) Active confirmed Plan Of Treatment Future Test Test Name Order Date COLONOSCOPY 12/31/2022 Insurance Providers Payer Name Payer Address Payer Phone Subscriber Number Group Number Insured Name Patient Relationship to Insured Coverage Start Date Coverage End Date MEDICARE OF [place] [address] [place] [address] [id number] GRETCHEN MEJIA Self - patient is the insured MEDEX ATTN CLAIMS [address] [place] [address] [phone] [id number] GRETCHEN MEJIA Self - patient is the [...]
--- OUTSIDE RECORDS SUMMARY | 2025-05-12 11:50 | XMS_ITS | Encounter Summary ---
Author Organization [facility] Address [address] [facility] [address] [place] [address] Phone Care Team Providers Care Shuttle Route Vehicle Operator Name Role Phone Burak Moses MD Primary Care Provider Ines Munoz MD Unavailable [phone] Michael Keller MD, MPH Unavailable [phone] Jeanine Pollard RN Unavailable [email or web address] Bryan Purvis MD, PhD Unavailable [phone] Shyam Pacheco RN Unavailable [phone] Benrie Mirza RN Unavailable [email or web address] Burak Moses MD Primary Care Provider [phone] Chaim Woo MD Unavailable [phone] Kevin Hill MD Unavailable Burak Moses MD Unavailable Maureen Hunter MD Unavailable Sadi Mendiola MD Unavailable Burak Moses MD Unavailable Ryan Hidalgo MD Unavailable [phone] Encounter Details Date Type Department Care Team (Late st Contact Info) Description 10/29/2018 Documentation Social Work Department, [facility] [address] [address] [address] [place] [address] [email or web address] Social History Tobacco Use Types Packs/Day Years Used Date Smoking Tobacco: Never Smokeless Tobacco: Never Alcohol Use Standard Drinks/Week Comments Yes 0 (1 standard drink = 0.6 oz pur e alcohol) Socially Sex and Gender Information Value Date Recorded Sex Assigned at Male 10/02/2022 8:48 AM EST Legal Sex Male 10:36 PM EDT Gender Identity Male 11/20/2020 5:16 PM EDT Sexual Orientation Straight 11/20/2020 5: 16 PM EDT Occupation Industry Job Start Date Job End Date Retired - [employer] Not on file Not on fi le Not on file documented as of this encounter Plan of Treatment Upcoming Encounters Date Type Department Care Team (Late st Contact Info) Description 07/20/2025 10:00 AM EST Office Visit [facility] Internal Medicine [address] [place] [address] Burak Moses MD [address] [place] [address] [email or web address] 08/02/2025 10:20 AM EST Office Visit [facility] at [address] [address] Martha Curtis MBBS [address] [place] [address] [email or web address] 02/28/2026 10:30 AM EDT Appointment Department of Radiation Oncology [address] [place] [address] Carrie Patterson PA-C [address] [place], [place] [address]am [place] [address] [email or web address] documented as of this encounter Visit Diagnoses Not on filedocumented in this encounter Additional Health Concerns Infection Onset Date Last Indicated Resolved Time CoV-Exposed Comment:Recent close contact documented in the COVID-19 Amb Triage Form 08/30/2021 08/31/2021 09/24/2021 1:[address] documented as of this encounter Care Teams Shuttle Route Vehicle Operator Relationship Specialty Start Date End Date Bruak Moses MD [address] [place] [address] [email or web address] PCP - General Internal Medicine 09/30/18 09/22/19 Burak Moses MD [address] [place] [address] [email or web address] PCP - General Internal Medicine 09/23/19 Ines Munoz MD [address] [place] [address] [email or web address] Primary Oncologist Medical Oncology 10/23/18 Michael Keller MD, MPH [address] [place] [address] [email or web address] 10/23/18 Jeanine Pollard RN [address] [place] [address] [email or web address] Primary Infusion Nurse 11/05/18 Bryan Purvis MD, PhD [address] [facility], [address] [address] [email or web address] Radiation Oncology 04/22/19 Shyam Pacheco RN [address] [place] [address], [address] [address] [email or web address] Infusion Nurse 07/23/19 11/18/22 Bernie Mirza, MG [address] [place] [address] [email or web address] Associate Infusion Nurse 07/23/19 Chaim Woo MD [address] [place] [address] Consulting Provider Cardiology 11/11/19 Kevin Hill MD [address] [place] [address] [email or web address] Primary Oncologist Hematology and Oncology 08/09/20 02/21/21 Burak Moses MD [address] [place] [address] Insurance Assigned Provider 12/10/20 09/08/22 Maureen Hunter MD [address] [place] [address] [email or web address] Provider Hematology and Oncology 02/22/21 06/03/22 Sadi Mendiola MD [address] [place] [address] [email or web address] Primary Oncologist Hematology and Oncology 12/02/21 Burak Moses MD [address] [place] [address] Insurance Assigned Provider 12/07/23 Ryan Hidalgo MD [address] [facility] [address] [place] [address] [email or web address] Primary Oncologist Medical Oncology 12/12/23 documented as of this encounter Additional Source Comments The information contained in this document represents components of the legal health record. It is not the complete legal health record.[facility]
--- OUTSIDE RECORDS SUMMARY | 2025-05-12 11:50 | XMS_ITS | Encounter Summary ---
Author Organization [facility] Address [address] [facility] [address] [place] [address] Phone Care Team Providers Care Aviation Engineer Name Role Phone Ines Munoz MD Unavailable [phone] Michael Keller MD, MPH Unavailable [phone] Jeanine Pollard RN Unavailable ALYCIA [email or web address] Bryan Purvis MD, PhD Unavailable [phone] Shyam Pacheco RN Unavailable [phone] Bernie Mirza RN Unavailable AMBROCIO [email or web address]@[email or web address] Burak Moses MD Primary Care Provider [phone] Chaim Woo MD Unavailable [phone] Kevin Hill MD Unavailable Burak Moses MD Unavailable Maureen Hunter MD Unavailable Sadi Mendiola MD Unavailable Burak Moses MD Unavailable Ryan Hidalgo MD Unavailable [phone] Encounter Details Date Type Department Care Team (Latest Contact Info) Description 02/09/2020 Transcribe Orders [facility] Laboratory [address] [place] [address] Briana Rojo, PHOSPHORIC ACID SUPERVISOR [address] [place] [address] Arteriosclerotic cardiovascular disease (Primary Dx) Social History Tobacco Use Types Packs/Day Years [...] Description 07/20/2025 10:00 AM EST Office Visit [facility] Internal Medicine [address] [place] [address] Burak Moses MD [address] [place] [address] [email or web address] 08/02/2025 10:20 AM EST Office Visit [facility] at [address] [address] Martha Curtis MBBS [address] [place] [address] [email or web address] 02/28/2026 10:30 AM EDT Appointment Department of Radiation Oncology [address] [place] [address] aCrrie Patterson PA-C [address] [place], [place] [address]am [place] [address] [email or web address] documented as of this encounter Results * (ABNORMAL) Lipid panel (02/09/2020 8:40 AM EDT) HDL 38 mg/dL [facility] Comment: Interpretation <40 mg/dL: Low HDL cholesterol (major risk factor for CHD) Greater than or equal to 60 mg/dL: High HDL cholesterol ( negative risk factor for CHD) HDL - cholesterol is affected by a number of factors, e.g. smoking, excerise, hormones, sex and age. CHOLESTEROL 217 0 - 240 mg/dL [facility] TRIGLYCERIDES 390(H) 30 - 160 mg/dL [facility] LDL 101 50 - 129 mg/dL [facility] Comment: LDL levels in terms of risk for coronary heart disease: <100 mg/dL: Optimal 100-129 mg/dL: Near or above optimal 130-159 mg/dL: Borderline high 160-189 mg/dL: High >190 mg/dL: Very High CARDIAC RISK RATIO 5.7(H) 3.4 - 5.0 C [facility] Blood 02/09/2020 8:40 AM EDT 02/09/2020 8:56 AM EDT Briana Rojo PHOSPHORIC ACID SUPERVISOR LAB BLOOD ORDERABLES Final Result Performing Organization Address City/State/[facility] Co de Phone Number [facility] [address] [place], [place] [id number] documented in this encounter Visit Diagnoses Diagnosis Arteriosclerotic cardiovascular disease- Primary Unspecified cardiovascular disease documented in this encounter Additional Health Concerns Infection Onset Date Last Indicated Resolved Time CoV-Exposed Comment:Recent close contact documented in the COVID-19 Amb Triage Form 08/30/2021 08/31/2021 09/24/2021 1:[address] Assessment Noted Time PHQ-2 Depression Total Score: 0 09/24/19 20 8:34 AM EST documented as of this encounter Care Teams Aviation Engineer Relationship Specialty Start Date End Date Burak Moses MD [address] [place] [address] [email or web address] PCP - General Internal Medicine 09/23/19 Ines Munoz MD [address] [place], [place] [address] [address] [email or web address] Primary Oncologist Medical Oncology 10/23/18 Michael Keller MD, MPH [address] [place] [address] [email or web address] Urology 10/23/18 Jeanine Pollard, MG [address] [place] [address] [email or web address] Primary Infusion Nurse 11/05/18 Bryan Purvis MD, PhD [address] [place] [address] [email or web address] Radiation Oncology 04/22/19 Shyam Pacheco RN [address] [place] [address] [email or web address] Associate Infusion Nurse 07/23/19 11/18/22 Bernie Mirza, MG [address] [place] [address] [email or web address] Associate Infusion Nurse 07/23/19 Chaim Woo MD [address] [place] [phone] Consulting Provider Cardiology 11/11/19 Kevin Hill MD [address] [place] [address] [email or web address] Primary Oncologist Hematology and Oncology 08/09/20 02/21/21 Burak Moses MD [address] [place] [address] [email or web address] Insurance Assigned Provider 12/10/20 09/08/22 Maureen Hunter MD [address] [place] [address] [email or web address]@[email or web address] Historical LMR Provider Hematology and Oncology 02/22/21 06/03/22 Sadi Mendiola MD [address] [place] [address] [email or web address] Primary Oncologist Hematology and Oncology 12/02/21 Burak Moses MD [address] [place] [address] [email or web address] Insurance Assigned Provider 12/07/23 Ryan Hidalgo MD [address] [place] [address] [address] [place] [address] [email or web address] Primary Oncologist Medical Oncology 12/12/23 documented as of this encounter Additional Source Comments The information contained in this document represents components of the legal health record. It is not the complete legal health record.[facility]
--- OUTSIDE RECORDS SUMMARY | 2025-05-12 11:50 | XMS_ITS | Encounter Summary ---
Author Organization [facility] Address [address] [facility] [address] [place] [address] Phone Care Team Providers Care Salvage Winder Name Role Phone Burak Moses MD Primary Care Provider [phone] Ines Munoz MD Unavailable [phone] Michael Keller MD, MPH Unavailable [phone] Jeanine Pollard RN Unavailable ALYCIA [email or web address] Bryan Purvis MD, PhD Unavailable [phone] Shyam Pacheco RN Unavailable [phone] Bernie Mirza RN Unavailable AMBROCIO [email or web address] Burak Moses MD Primary Care Provider [phone] Chaim Woo MD Unavailable [phone] Kevin Hill MD Unavailable Burak Moses MD Unavailable Maureen Hunter MD Unavailable Sadi Mendiola MD Unavailable [phone] Burak Moses MD Unavailable Ryan Hidalgo MD Unavailable [phone] Encounter Details Date Type Department Care Team (Late st Contact Info) Description 08/06/2019 Transcribe Orders [facility] Laboratory [address] [place] [address] Kevin Hill MD [address] [place] [address] [email or web address] Screening for unspecified condition (Primary Dx) Social History Tobacco Use Types [...] Description 07/20/2025 10:00 AM EST Office Visit [facility] Internal Medicine [address] [place] [address] Burak Moses MD [address] [place] [address] [email or web address] 08/02/2025 10:20 AM EST Office Visit [facility] at [address] [address] Martha Curtis MBBS [address] [place] [address] [email or web address] 02/28/2026 10:30 AM EDT Appointment Department of Radiation Oncology [address] [place] [address] Carrie Patterson PA-C [address] [place], [place] [address]am [place] [address] [email or web address] documented as of this encounter Visit Diagnoses Diagnosis Screening for unspecified condition- Primary documented in this encounter Additional Health Concerns Infection Onset Date Last Indicated Resolved Time CoV-Exposed Comment:Recent close contact documented in the COVID-19 Amb Triage Form 08/30/2021 08/31/2021 09/24/2021 1:[address] documented as of this encounter Care Teams Salvage Winder Relationship Specialty Start Date End Date Burak Moses MD [address] [place] [address] [email or web address] PCP - General Internal Medicine 09/30/18 09/22/19 Burak Moses MD [address] [place] [address] [email or web address] PCP - General Internal Medicine 09/23/19 Ines Munoz MD [address] [place] [address] [place] [address] [email or web address] Primary Oncologist Medical Oncology 10/23/18 Michael Keller MD, MPH [address] [place] [address] [email or web address] 10/23/18 Jeanine Pollard RN [address] [place], [place] [email or web address] Primary Infusion Nurse 11/05/18 Bryan Purvis MD, PhD [address] [facility] [address] [place] [address] [email or web address] Radiation Oncology 04/22/19 Shyam Pacheco RN 450 [facility], [address] [address] [email or web address] Associate Infusion Nurse 07/23/19 11/18/22 Bernie Mirza RN [address] [place] [address] [email or web address] Associate Infusion Nurse 07/23/19 Chaim Woo MD [address] [place] [address] Consulting Provider Cardiology 11/11/19 Kevin Hill MD [address] [place] [phone] [email or web address] Primary Oncologist Hematology and Oncology 08/09/20 02/21/21 Burak Moses MD [address] [place] [address] Insurance Assigned Provider 12/10/20 09/08/22 Maureen Hunter MD [address] [place] [address] [email or web address] Historical LMR Provider Hematology and Oncology 02/22/21 06/03/22 Sadi Mendiola MD [address] [place] [address] [email or web address] Primary Oncologist Hematology and Oncology 12/02/21 Burak Moses MD [address] [place] [address] [email or web address] Insurance Assigned Provider 12/07/23 Ryan Hidalgo MD [address] [place] [address] [place] [address] [email or web address] Primary Oncologist Medical Oncology 12/12/23 documented as of this encounter Additional Source Comments The information contained in this document represents components of the legal health record. It is not the complete legal health record.[facility]
--- OUTSIDE RECORDS SUMMARY | 2025-05-12 11:51 | XMS_ITS ---
Author Organization [facility] Address [address] [facility] [address] [place] [address] Phone Care Team Providers Care Step Finisher Name Role Phone Ines Munoz MD Unavailable [phone] Michael Keller MD, MPH Unavailable [phone] Jeanine Pollard RN Unavailable ALYCIA [email or web address] Bryan Purvis MD, PhD Unavailable [phone] Bernie Mirza RN Unavailable AMBROCIO [email or web address] Burak Moses MD Primary Care Provider Chaim Woo MD Unavailable [phone] Sadi Mendiola MD Unavailable [phone] Burak Moses MD Unavailable Ryan Hidalgo MD Unavailable [phone] Active Problems Patient Care Coordination No te Formatting of this note migh t be different from the original. Height 176.4cm no shoes 12/2023 Problem Noted Date Diagnosed Date Seasonal allergies 04/15/2023 Rash and other nonspecific skin eruption 023 QUINTEROS (dyspnea on exertion) 08/30/2020 Assessment & Plan (08/30/2020 5:33 PM EST): We do not think that his exam supports CHF or asthma as the reasons for the his QUINTEROS. His weight gain certainly can affect his dyspnea though. We used this time to assure the patient that his lungs are clear and his x-ray negative. Dry eye 08/30/2020 Assessment & Plan (08/30/2020 5:34 PM EST): The patient's history of dry eye is due to his use of Visine. He should curb the Visine and instead if needed take artificial tears morning noon and night for a week. If he still having issues we can refer him to an sonographer. Another reason for dry eye would be hyperglycemia. Cough 08/30/2020 Assessment & Plan (08/30/2020 5:36 PM EST): 90-day history of dry cough with the hypothesis that the fiber masks are causing the cough. Switch over to cloth masks to see if cough is still persisting. If yes we can consider starting the patient on some anticough medicine such as Tessalon. Routine general medical exam ination at a [facility] care facility 04/26/2020 Arthralgia of both hands 04/26/2020 Assessment & Plan (04/26/2020 1:10 PM EDT): Unclear what is causing the swelling and pain in his finger joints, whether this is a side effect of the Lupron. First step is to get an x-ray of 1 of the 2 hands and then depending on the pathology referral to rheumatology. No nonsteroidals at this time hold off on empiric treatment until we can get a better idea of what is causing this. 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 Graham at [facility]. Assessment & Plan (11/07/2021 9:19 AM EST): Most recent right-sided brachial approach angiography revealing three-vessel disease with status post stent placement in one of the occlusions having a collateral supplying the arterial bed, third lesion being assessed for stent placement. Patient continues on Plavix for such, cholesterol being well managed with Pravachol. Assessment & Plan (04/26/2020 1:13 PM EDT): Patient currently on goal-directed therapy with Crestor aspirin and Toprol-XL. Patient taking nitroglycerin as needed. We will continue to control patient's diabetes and now follow-up in 3 months to see if we can get his A1c with just metformin alone and dietary changes back to 6% or better. Patient will continue to follow with his cardiology regarding symptoms and reassessment. Other chest pain 09/24/2019 Assessment & Plan (09/24/2019 10:08 AM EST): His symptoms included heart racing diaphoresis anxiety and 4 out of 10 chest pain pressure-like with no wandering of the pain into the jaw or arm. We performed an EKG today to make sure that there was no dysrhythmias or pathological Q waves. EKG came back left axis normal sinus rhythm with no ectopy and no acute or chronic ischemic changes. The palpitations appear to be more anxiety driven perhaps a momentary bout of dehydration as well. Patient encouraged to drink plenty of water throughout the day beyond his thirst and we will get a exercise stress test mainly to give him a peace of mind so that he can return to the gym to workout as he once did 2 months ago. Stress test will be at [facility]. He will follow-up with me as before for his wellness visit. At that point we can recheck his A1c Type 2 diabetes mellitus wit h hyperglycemia, without long-term current use of insulin 07/24/2019 Assessment & Plan (07/29/2024 10:31 AM EST): Antidiabetics working well and patient's diet stable, A1c subsequently also stable, continue to monitor twice yearly and will do a wellness visit in 6 months with prior labs. Assessment & Plan (04/15/2023 1:44 PM EDT): Type 2 diabetes along with dyslipidemia along with microalbuminuria will be assessed. Some of the labs that I would have ordered had already been ordered by oncology that is linked into our system. So we can obtain a lipid profile and then share those results with cardiology and act upon the hemoglobin A1c if needed. Particular attention will be to the kidney function if the patient is taking sulfonylureas which she is. Continue the glimepiride and metformin for management, our goal is to get the A1c in the 6% bracket but at least 7 to 8% would be okay to. As such I will see him again in 6 months for a wellness visit. 30-minute visit today. Assessment & Plan (11/07/2021 9:20 AM EST): Excellent management of the diabetes, patient currently just on Metformin and A1c under 6.5% in October. We can repeat in 6 months. Continue as you are doing. May need to monitor more closely if dexamethasone administered as part of protocol for prostate cancer treatment. Assessment & Plan (08/30/2020 5:32 PM EST): Where he proved to have a very good A1c in the past only requiring twice a year now he is an 8.8% uncontrolled diabetes. On a positive note we can start him on a sulfonylurea added to the Metformin. The [id number] was done and then evaluated after he left. We will speak to them tomorrow about the A1c. Assessment & Plan (04/26/2020 1:09 PM EDT): For a long time the patient's A1c had been so low that we could see him every 6 months and then suddenly it shot up and it is unclear if that was related to prednisone associated with prostate cancer treatment. In any case A1c is now back on the decline which is good at 7.7% we should follow her again in 3 months to see where he sat. Obtain a microalbumin today. Recent lipid panel came back acceptable especially with the coronary artery disease. Patient will continue on aspirin and Crestor prescribed through cardiology. Assessment & Plan (09/24/2019 10:05 AM EST): There have been no hypoglycemic spells with the palpitations and sudden onset sweats. No nausea. The rapid developing diaphoresis was solely associated with the administration of Lupron. If he is getting diaphoresis that feels different and coupled with nausea consider checking blood sugar 4 hypoglycemia. Otherwise most recent A1c in July came back in the 6% range within target range. Assessment & Plan (07/24/2019 12:51 PM EST): Discussion with the patient regarding type 2 diabetes, will obtain A1c, lipid profile, microalbuminuria assessment, electrolytes kidney function blood sugar. Encourage patient to yearly optometry eye screens for retinal disease and glaucoma, will obtain diabetic foot exam in 6 months. Diabetic diet elements discussed with patient. In 6 months physical exam. For now maintain on metformin, continue aspirin for cardiovascular protection. Assess lipid profile to see if statin add on would be sensible. Benign prostatic hyperplasia with urinary freque ncy 07/24/2019 Assessment & Plan (07/24/2019 12:42 PM EST): We can take over the prescription of the Uroxatrol managing his BPH. If he is having worsening obstruction though we will refer him back to [facility] urology. He had previously seen Dr. Cordova at the [facility]. Hyponatremia 02/10/2019 Prostate cancer 10/22/2018 Cancer Staging:Clinical:Stage IIIB(cT3b, cN0, cM0, PSA: 7.3, Grade Group: 2, [place]: 3, +: 4) - Signed by Lance Flores, SURG TECH on 11/11/2019 Assessment & Plan (01/30/2025 11:30 AM EDT): IMPRESSION: This is a 74-year-old man who is 6 years and 4 months out from the diagnosis of: 09/09/2018: Prostate adenocarcinoma Stage IIIB (cT3b,cN0,cM0) [place] score 3+4 = 7 Grade group 2 High risk disease DISCUSSION: I discussed all impression, natural history of the disease, prognosis, surveillance as per NCCN guidelines and further management in this regard. Patient has been doing well from oncological standpoint without any evidence of cancer recurrence and I reassured him about this. I discussed recent PSA which continues to be stable. RECOMMENDATIONS: Continue surveillance as per NCCN guidelines Return for follow-up in 6 months with labs Thank you very much for allowing me to participate in this patient's care Assessment & Plan (07/29/2024 10:30 AM EST): Will continue to follow with the patient regarding the PSA marker. His ability to urinate is good. Assessment & Plan (11/07/2021 9:18 AM EST): Lupron causing symptoms of heart failure, has been discontinued. Patient will be following [facility] oncology monitoring PSA and potential follow-up antitestosterone treatment contemplated. Assessment & Plan (04/26/2020 1:11 PM EDT): PSA currently undetectable but it is thought that the Lupron was causing him cardiac and musculoskeletal side effects so it was stopped in March. Patient following up with oncology with a repeat PSA and then treatment change if needed. He is able to urinate without problems at this time Assessment & Plan (09/24/2019 10:03 AM EST): Aside from prostate cancer, patient has BPH, uses the alfuzosin to help with symptoms. His frequency of urination and nocturia has indirectly caused him to reduce his intake of water. This puts him at risk of orthostasis and bouts of presyncope. Patient presumably also getting vasodilation with the Lupron could be causing some momentary hypotension and re flex tachycardia. The fact that he is having constipation is a tip off that he is not drinking enough water. Counseled him to drink plenty of water together with 2 tablespoons of Metamucil to seismograph operator helper in regular bowel movements with less constipation and more water in his system. Assessment & Plan (07/24/2019 12:39 PM EST): Prostate cancer diagnosed since September 2017, local spreading into the seminal vesicles, status post external beam radiation treatment, radioactive gold seed implantation of prostate, currently on Lupron hormonal management. Patient asymptomatic, a little bit of fatigue and reduced energy secondary to hypogonadism. Plan: Patient wishing to move the Lupron injections to Edmar Ayala as current oncologist at [facility] far away and going into maternity leave. We will set up a referral to [facility] oncology to coordinate care with [facility] oncology department to take over the Lupron injections. Patient will consider if switching care to [facility]. Current Treatment and Therapy Plans No current plan information found. Past Treatment and Therapy Plans Oncology Therapy Plan Plan Name Start Date Discontinue Date Treatment Medications Discontinue Reason Plan Provider LEUPROLIDE ACETATE 3 MONTH (LUPRON DEPOT 3 MONTH) 11/06/2018 01/30/2025 leuprolide (3 month) (LUPRON DEPOT 3 MONTH)leuprolide (LUPRON) a. Therapy Complete Kevin Hill MD
--- OUTSIDE RECORDS SUMMARY | 2025-05-12 11:51 | XMS_ITS | Clinical Summary ---
Author Organization [facility] Address [address] [facility] [address] [place] [address] Phone Care Team Providers Care Choral Director Name Role Phone Ines Munoz MD Unavailable [phone] Michael Keller MD, MPH Unavailable [phone] Jeanine Pollard RN Unavailable [email or web address] [email or web address] Bryan Purvis MD, PhD Unavailable [phone] Bernie Mirza RN Unavailable [email or web address] [email or web address] Burak Moses MD Primary Care Provider Chaim Woo MD Unavailable [phone] Sadi Mendiola MD Unavailable [phone] Burak Moses MD Unavailable Ryan Hidalgo MD Unavailable [phone] Allergies Active Allergy Reactions Criticality Noted Date Comments Cephalexin Unknown 10/13/2018 childhood Penicillin Unknown 01/29/2025 Penicillins 10/13/2018 childhood Medications aspirin 81 mg chewable tablet Take 81 mg by mouth daily. Active calcium carbonate-vitami n D3 1,250 mg (500 mg elemental)-400 units Tab Take 1 tablet by mouth daily. Active cholecalciferol (VITAMIN D3) 25 MCG (1,000 unit) tablet Take 1,000 Units by mouth daily. Active metoprolol succinate (TOPROL-XL) 25 MG 24 hr tablet Take 12.5 mg by mouth daily. Active nitroglycerin (NITROSTAT) 0.4 MG SL tablet DISSOLVE ONE TABLET UNDER THE TONGUE EVERY 5 MINUTES NEEDED FOR CHEST PAIN 0 Active Q-SORB CO Q-10 200 mg capsule Take by mouth daily. 1 Active clopidogrel (PLAVIX) 75 mg tablet Take 75 mg by mouth daily. 2 Active cyanocobalamin, vitamin B-12, 1000 MCG tablet Take 1,000 mcg by mouth daily. for 90 days 2 Active isosorbide mononitrate (IMDUR) 30 MG 24 hr tablet TAKE 1/2 (ONE-HALF) TABLET BY MOUTH ONCE DAILY IN THE MORNING. DO NOT CRUSH OR CHEW 3 Active MAGNESIUM OXIDE ORAL Take 400 mg by mouth daily. Active mometasone (NASONEX) 50 mcg/actuation nasal sprayIndications :Seasonal allergies 2 sprays by Nasal route daily. 17 g 11 3 Active alfuzosin (UROXATRAL) 10 mg 24 hr tabletIndication s:Benign prostatic hyperplasia with urinary frequency Take 2 tablets (20 mg total) by mouth daily. 180 tablet 2 4 Active triamcinolone acetonide 0.5 % creamIndications :Rash and other nonspecific skin eruption Apply daily to right cordova rash for 14 days 30 g 4 Active hydrocortisone (ANUSOL-HC) 2.5 % rectal creamIndications :Grade II hemorrhoids Place rectally 2 (two) times a day. 30 g 1 4 Active fluticasone propionate (FLONASE) 50 mcg/actuation nasal sprayIndications :PND (post-nasal drip) Use 1 spray(s) in each nostril once daily 16 g 3 4 Active oxyBUTYnin (DITROPAN-XL) 10 MG 24 hr tablet Take 10 mg by mouth daily. 4 Active glimepiride (AMARYL) 1 MG tabletIndication s:Type 2 diabetes mellitus with hyperglycemia, without long-term current use of insulin Take 1 tablet (1 mg total) by mouth daily before breakfast. 4 Active ezetimibe (ZETIA) 10 mg tablet Take 10 mg by mouth daily. Active pravastatin (PRAVACHOL) 40 MG tablet Take 40 mg by mouth daily. 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 Another reason for dry eye would be [...] Routine general medical exam ination at a health care facility 04/26/2020 Arthralgia of both hands [...] disease due to type 2 diabetes gregory morales 04/26/2020 Assessment & Plan (07/29/2024 10:30 AM EST): Heart disease is stable, patient can remain on statin therapy and will continue with aspirin, Plavix, Pravachol, patient will continue to follow with Dr. Graham at [facility]. Assessment & Plan (11/07/2021 9:19 AM EST): [...] months ago. Stress test will be at [facility]. He will follow-up with me as before [...] a sulfonylurea added to the Metformin. The quaqf-to-jitv was done and then evaluated after he [...] though we will refer him back to [facility] urology. He had previously seen Dr. Cordova at the [facility]. Hyponatremia 02/10/2019 Prostate cancer 10/22/2018 Cancer Staging:Clinical:Stage IIIB(cT3b, cN0, cM0, PSA: 7.3, Grade Group: 2, Salomón: 3, +: 4) - Signed by Lance Flores NP on 11/11/2019 Assessment & Plan (01/30/2025 11:30 [...] has been discontinued. 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 We will set up a referral to [facility] oncology to coordinate care with [facility] oncology department to take over the Lupron injections. Patient will consider if switching care to [facility]. Encounters Date Type Department Care Team Description 04/18/2025 Refill [facility] [address] [place] [address] Burak Moses MD Medication Refill from Last 3 Months Immunizations Immunization Administration Dates Next Due COVID-19 (Pre-06/24) Pfizer Vaccine, mRNA, PF 06/21/2021,12/17/2020,11/26/2020 INFLUENZA, SPLIT VIRUS, TRIVALENT PF 06/13/2015 INFLUENZA, SPLIT VIRUS, TRIV ALENT W/ PRESERVATIVE IM 05/31/2021,05/14/2020,06/13/2018,2016,06/04/2016,06/13/2015,06/09/2014,1 ,05/19/2010 Influenza High-Dose Quadriva lent Preservative Free IM 05/22/2023,06/11/2022,05/31/2021,2019 Influenza High-Dose Trivalen t Preservative Free IM 05/25/2024,05/21/2017,06/04/2016 Influenza Trivalent Adjuvant ed Preservative free IM 06/05/2019 Pneumococcal conjugate PCV13 08/17/2016 Pneumococcal conjugate PCV20 06/21/2024 Tdap 03/13/2016 Zoster live 06/13/2015 Family History Medical History Relation Comments Prostate cancer Cousin Prostate cancer Father Diabetes Maternal Aunt 1 Diabetes Maternal Aunt 2 Diabetes Maternal Aunt 3 Diabetes Maternal Aunt 4 Diabetes Maternal Aunt 5 Diabetes Maternal Aunt 6 Diabetes Maternal Uncle 1 Diabetes Maternal Uncle 2 Diabetes Maternal Uncle 3 Diabetes Mother Prostate cancer Paternal Grandfather Cancer Paternal Grandmother Cancer Paternal Uncle Prostate cancer Paternal Uncle Relation Status Comments Cousin Father (Age 89) Maternal Aunt 1 Alive Maternal Aunt 2 Alive Maternal Aunt 3 Alive Maternal Aunt 4 Alive Maternal Aunt 5 Alive Maternal Aunt 6 Alive Maternal Uncle 1 Alive Maternal Uncle 2 Alive Maternal Uncle 3 Alive Mother Alive Paternal Grandfather Paternal Grandmother Alive Paternal Uncle Social History Tobacco Use Types Packs/Day Years Used Date Smoking Tobacco: Never Smokeless Tobacco: Never Alcohol Use Standard Drinks/Week Comments Yes 0 (1 standard drink = 0.6 oz pure alcohol) rare, 8 cans of beer in 3 years Education Answer Date Recorded Are you interested in more education? Not on paras e 12/28/2022 Are you concerned about learning? Not on file 12/28/2022 No 12/28/2022 No 12/28/2022 Digital Access Answer Date Recorded No 01/24/2023 No 01/24/2023 Reliable internet access at home? Not on file 01/24/2023 Device with a working camera? Not on file Intimate Partner Violence Answer Date R ecorded Denied Basic Needs Not on file 01/29/2025 In the past 12 months have y ou been in a relationship with a person who hurts, threatens, or tries to control you? No 01/29/2025 Worried food would run out Not on file 01/29 In the past 12 months have y ou been in a relationship with a person who hurts, threatens, or tries to control you? No 01/29/2025 Sex and Gender Information Value Date Recorded Sex Assigned at Male 10/02/2022 8:48 AM EST Legal Sex Male 10:36 PM EDT Gender Identity Male 11/20/2020 5:16 PM EDT Sexual Orientation Straight 11/20/2020 5: 16 PM EDT Occupation Industry Job Start Date Job End Date Retired - [employer] Not on file Not on fi le Not on file Last Filed Vital Signs Vital Sign Reading Time Taken Comments Blood Pressure 106/58 01/29/2025 10:21 AM EDT Pulse 60 01/29/2025 10:21 AM EDT Temperature 36.3 C (97.4 F) 01/29/2025 10:21 AM EDT Respiratory Rate 16 01/29/2025 10:21 AM EDT Oxygen Saturation 97% 01/29/2025 10:21 AM EDT Inhaled Oxygen Concentration - - Weight 92 kg (202 lb 12.8 oz) 01/29/2025 10:21 A M EDT Height 176.4 cm (5' 9.45 ) 01/29/2025 10:21 AM E DT Body Mass Index 29.56 01/29/2025 10:21 AM EDT Plan of Treatment Upcoming Encounters Date Type Department Care Team (Late st Contact Info) Description 07/20/2025 10:00 AM EST Office Visit [facility] Internal Medicine [address] [place] [address] Burak Moses MD [address] [place] [address] [email or web address] 08/02/2025 10:20 AM EST Office Visit [facility] at [address] [address] Martha Curtis MBBS [address] [place] [address] [email or web address] 02/28/2026 10:30 AM EDT Appointment Department of Radiation Oncology [address] [place] [address] Carrie Patterson PA-C [address] [place] [address] [place] [address] [email or web address] Health Maintenance Due Date Last Done Comments COLOGUARD 1995 FIT TEST 1995 FOBT 1995 SIGMOIDOSCOPY 1995 VIRTUAL COLONOSCOPY 1995 ZOSTER VACCINES (1 of 2) 08/08/2015 06/13/2015 RSV VACCINE (1 - 1-dose 75+ series) 2025 INFLUENZA VACCINE (#1) 2025 , 05/22/2023, 06/11/2022, Additional history exists COVID-19 VACCINE ( season) 2025 07/14/2022, 01/18/2022, 06/21/2021, Additional history exists HEMOGLOBIN A1C 06/29/2025 12/28/2024, 09/2023, 01/24/2024, Additional history exists BLOOD PRESSURE 08/01/2025 01/29/2025 DIABETIC EYE EXAM 08/07/2025 08/07/2024, , 07/06/2022, Additional history exists CREATININE LEVEL 12/28/2025 12/28/2024, 01/2024, 12/20/2023, Additional history exists LIPID PANEL 12/28/2025 12/28/2024, 09/2023, 05/15/2023, Additional history exists URINE MICROALBUMIN/CREATININE RATIO 12/28/2025 12/28/2024, 07/07/2024, 05/15/2023, Additional history exists DEPRESSION SCREENING 01/29/2026 01/29/2025 Adult Td,Tdap Booster 03/13/2026 03/13/2016 COLONOSCOPY 05/03/2033 05/03/2023, 08/15/2017 COLORECTAL CANCER SCREENING 05/03/2033 HEPATITIS C SCREENING Completed 07/24/2019, 019 PNEUMOCOCCAL VACCINES (50+ years) Completed 06/21/2024, 08/17/2016 SMOKING STATUS SCREENING (Once After 26 Yrs) Completed 01/29/2025 HEPATITIS A VACCINES Aged Out No long er eligible based on patient's age to complete this topic HIB VACCINES Aged Out No longer eligi ble based on patient's age to complete this topic MENINGOCOCCAL VACCINES (ACWY) Aged Out No longer eligible based on patient's age to complete this topic MENINGOCOCCAL VACCINES (B) Aged Out N o longer eligible based on patient's age to complete this topic Medical Devices Not on file Procedures Procedure Name Priority Date/Time Associated Diagnosis Comments MICROALBUMIN/CREATININ E RATIO, RANDOM URINE Routine 12/28/2024 9:32 AM EDT Type 2 diabetes mellitus with hyperglycemia, without long-term current use of insulin HEMOGLOBIN A1C Routine 12/28/2024 9:17 AM EDT Type 2 diabetes mellitus with hyperglycemia, without long-term current use of insulin LIPID PANEL Routine 12/28/2024 9:17 AM EDT Type 2 diabetes mellitus with hyperglycemia, without long-term current use of insulin COMPREHENSIVE METABOLIC PANEL Routine 12/28/2024 9:17 AM EDT Prostate CA COLONOSCOPY FOR RESULT ENTRY ONLY Routine 05/03/2023 DIABETES EYE EXAM FOR RESULT ENTRY ONLY Routine 07/06/2022 HEPATITIS C ANTIBODY, QUALITATIVE Routine 07/24/2019 11:32 AM EST Encounter for hepatitis C screening test for low risk patient from Last 3 Months or Most Recently Relevant to Health Maintenance Results * Microalbumin/creatinine ratio, random urine (12/28/2024 9:32 AM EDT) URINE MICROALBUMIN <1.2 0 - 2.3 mg/dL [facility] URINE CREATININE 154 mg/dL [facility] MICROALB/CRE RATIO NOT CALCULATED 0 - 20 mg/g Cre [facility] Comment:due to Microalbumin <1.2 Urine (Urine) 12/28/2024 9:3 2 AM EDT 12/28/2024 9:37 AM EDT us Burak Moses MD URINE ORDERABLES Final Result [facility] [address] [place] [address] * (ABNORMAL) Comprehensive metabolic panel (12/28/2024 9:17 AM EDT) SODIUM 137 133 - 146 mmol/L [facility] POTASSIUM 4.1 3.3 - 5.1 mmol/L [facility] CHLORIDE 100 96 - 108 mmol/L [facility] CO2 26 21 - 35 mmol/L [facility] BUN 8 6 - 19 mg/dL [facility] CREATININE 0.90 0.5 - 1.5 mg/dL [facility] GLUCOSE 110(H) 70 - 99 mg/dL [facility] ALBUMIN 4.0 3.9 - 4.8 g/dL [facility] TOTAL PROTEIN 6.9 6.5 - 8.0 g/dL [facility] CALCIUM 9.0 8.4 - 10.3 mg/dL [facility] ALKALINE PHOSPHATASE 64 39 - 117 U/L [facility] TOTAL BILIRUBIN 1.1 0.0 - 1.2 mg/dL [facility] AST 18 0 - 37 U/L [facility] ALT 9 0 - 40 U/L [facility] GLOBULIN 2.9 1 - 4.8 g/dL [facility] EGFR 90 >59 mL/min/1.7 3m2 [facility] Comment:Estimated glomerular filtration rate calculated using the CKD-EPI refit equation. ANION GAP 15 10 - 20 mmol/L [facility] Blood 12/28/2024 9:17 AM EDT 12/28/2024 9:22 AM EDT us Ryan Hidalgo MD LAB BLOOD ORDERABLES Final Re sult [address] [id number] * Hemoglobin A1c (12/28/2024 9:17 AM EDT) HEMOGLOBIN A1C 5.5 4.3 - 5.8 % [facility] Blood 12/28/2024 9:17 AM EDT 12/28/2024 9:22 AM EDT us Burak Moses MD LAB BLOOD ORDERABLES Final Resul t [address] [address] * (ABNORMAL) Lipid panel (12/28/2024 9:17 AM EDT) HDL 42 mg/dL [facility] Comment: Interpretation <40 mg/dL: Low HDL cholesterol (major risk factor for CHD) Greater than or equal to 60 mg/dL: High HDL cholesterol ( negative risk factor for CHD) HDL - cholesterol is affected by a number of factors, e.g. smoking, excerise, hormones, sex and age. CHOLESTEROL 120 0 - 240 mg/dL [facility] TRIGLYCERIDES 153 30 - 160 mg/dL [facility] LDL 47(L) 50 - 129 mg/dL [facility] Comment: LDL levels in terms of risk for coronary heart disease: <100 mg/dL: Optimal 100-129 mg/dL: Near or above optimal 130-159 mg/dL: Borderline high 160-189 mg/dL: High >190 mg/dL: Very High CARDIAC RISK RATIO 2.9(L) 3.4 - 5.0 C [facility] Blood 12/28/2024 9:17 AM EDT 12/28/2024 9:22 AM EDT us Burak Moses MD LAB BLOOD ORDERABLES Final Resul t Performing Organization Address [facility] Co de Phone Number [address] [address] * COLONOSCOPY FOR RESULT ENTRY ONLY (05/03/2023) us Burak Moses MD HEALTH MAINTENANCE Edited Result - Final * DIABETES EYE EXAM FOR RESULT ENTRY ONLY (07/06/2022) us Almita Schrader MD HEALTH MAINTENANCE Edited Result - Final * Hepatitis C antibody, qualitative (07/24/2019 11:32 AM EST) HCV NON-REACTIV E NON-REACTI VE [facility] Blood 07/24/2019 11:3 2 AM EST 07/24/2019 11:36 AM EST us Burak Moses MD LAB BLOOD ORDERABLES Final Resul t [facility] [address] [place] [address] from Last 3 Months or Most Recently Relevant to Health Maintenance Insurance MEDICARE PART A & B [employer] MEDEX SUPPLEMENT HEALTH SAFETY NET FULL [facility] PART [facility] & B [employer] MEDEX SUPPLEMENT [facility] NET FULL [facility] MEDICARE PART A & B [employer] MEDEX SUPPLEMENT flux - neutrinity SAFETY NET FULL [facility] MED[facility] PART A & B [facility] MEDEX SUPPLEMENT [facility] FULL MEDICARE PART A & B [email or web address] CROSS MEDEX SUPPLEMENT Member Subscriber Plan / Payer (Ef fective 2015-Present) Name:Mickey Kim Relation to Subscriber:Self Name:Mickey Kim Payer ID:[id number] (NAIC) Type:Indemnity Address: [id number] FULL MEDICARE PART A & B [employer] MEDEX SUPPLEMENT HEALTH SAFETY [place] [id number] [employer] MEDEX SUPPLEMENT flux - neutrinity [facility] NET FULL [facility] MED[facility] PART A & B [facility] MEDEX SUPPLEMENT [facility] SAFETY NET [facility]ULL [facility] MEDICARE PART A & B [employer] MEDEX SUPPLEMENT HEALTH SAFETY NET FULL [facility] Advance Directives For more information, please contact: [phone] (9AM - 5PM [place], Saturday-Saturday) Documents on File Type Date Recorded Patient Air Bag Buffer Expl anation Healthcare Proxy 10/23/2018 PROXY * Full Code (Presumed) (Latest Code Status on File) Date Activated Date Inactivated Comments 02/10/2019 2:22 AM 02/10/2019 1:39 PM Care Teams Choral Director Relationship Specialty Start Date End Date Burak Moses MD [address] [place] [address] [email or web address] PCP - General Internal Medicine 09/23/19 Ines Munoz MD [address] [place] [address] [place] [address] [email or web address] Primary Oncologist Medical Oncology 10/23/18 Michael Keller MD, MPH [address] [place] [address] [email or web address] 10/23/18 Jeanine Pollard RN [address] [place] [address] [email or web address] Primary Infusion Nurse 11/05/18 Bryan Purvis MD, PhD [address] [place] [address], [facility] [address] [place], [place] [email or web address] Radiation Oncology 04/22/19 Bernie Mirza, MG [address] [place], [place] [email or web address] Associate Infusion Nurse 07/23/19 Chaim Woo MD [address] [place] [phone] Consulting Provider Cardiology 11/11/19 Sadi Mendiola MD [address] [place] [address] [email or web address] Primary Oncologist Hematology and Oncology 12/02/21 Burak Moses MD [address] [place] [address] [email or web address] Insurance Assigned Provider 12/07/23 Ryan Hidalgo MD [address] [place] [address] [email or web address] Primary Oncologist Medical Oncology 12/12/23 Additional Source Comments The information contained in this document represents components of the legal health record. It is not the complete legal health record.[facility]
--- OUTSIDE RECORDS SUMMARY | 2025-05-12 11:51 | XMS_ITS | Encounter Summary ---
Author Organization [facility] Address [address] [facility] [address] [place] [address] Phone Care Team Providers Care Business Intern Name Role Phone Ines Munoz MD Unavailable [phone] Michael Keller MD, MPH Unavailable [phone] Jeanine Pollard RN Unavailable [email or web address] Bryan Purvis MD, PhD Unavailable [phone] Bernie Mirza RN Unavailable [email or web address] Burak Moses MD Primary Care Provider Chaim Woo MD Unavailable [phone] Sadi Mendiola MD Unavailable [phone] Burak Moses MD Unavailable Ryan Hidalgo MD Unavailable [phone] Encounter Details Date Type Department Care Team (Late st Contact Info) Description 12/19/2023 Procedure Pass [facility], Ct Scan - [facility] [address] [place] [address] Social History Tobacco Use Types Packs/Day Years [...] with a working camera? Not on file Sex and Gender Information Value Date Recorded [...] Description 07/20/2025 10:00 AM EST Office Visit [facility] Internal Medicine [address] [place] [address] Burak Moses MD [address] [place] [address] [email or web address] 08/02/2025 10:20 AM EST Office Visit [facility] at [address] [address] Martha Curtis MBBS [address] [place] [address] [email or web address] 02/28/2026 10:30 AM EDT Appointment Department of Radiation Oncology [address] [place] [address] Carrie Patterson PA-C [address] [place], [place] [address]am [place] [address] [email or web address] documented as of this encounter Visit Diagnoses Not on filedocumented in this encounter Additional Health Concerns Assessment Noted Time PHQ-2 Depression Total Score: 0 10/02/19 23 8:40 AM EST documented as of this encounter Care Teams Business Intern Relationship Specialty Start Date End Date Burak Moses MD [address] [place] [address] [email or web address] PCP - General Internal Medicine 09/23/19 Ines Munoz MD [address] [place] [address] [address] [place] [address] [email or web address] Primary Oncologist Medical Oncology 10/23/18 Michael Keller MD, MPH [address] [place] [address] [email or web address] Urology 10/23/18 Jeanine Pollard, MG [address] [place] [address] [email or web address] Primary Infusion Nurse 11/05/18 Bryan Purvis MD, PhD [address] [place] [address], [facility] [address] [place] [address] [email or web address] Radiation Oncology 04/22/19 Bernie Mirza RN [address] [place] [address] [email or web address] Associate Infusion Nurse 07/23/19 Chaim Woo MD [address] [place] [address] [phone] Consulting Provider Cardiology 11/11/19 Sadi Mendiola MD [address] [place] [address] [email or web address] Primary Oncologist Hematology and Oncology 12/02/21 Burak Moses MD [address] [place] [address] [email or web address] Insurance Assigned Provider 12/07/23 Ryan Hidalgo MD [address] [place] [address] [email or web address] Primary Oncologist Medical Oncology 12/12/23 documented as of this encounter Additional Source Comments The information contained in this document represents components of the legal health record. It is not the complete legal health record.[facility]
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
--- OUTSIDE RECORDS SUMMARY | 2025-05-12 11:51 | XMS_ITS | Encounter Summary ---
Author Organization [facility] Address [address] [facility] [address] [place] [address] Phone Care Team Providers Care Supervisor Core Shop Name Role Phone Burak Moses MD Primary Care Provider Ines Munoz MD Unavailable [phone] Michael Keller MD, MPH Unavailable [phone] Jeanine Pollard RN Unavailable ALYCIA [email or web address] Bryan Purvis MD, PhD Unavailable [phone] Shyam Pacheco RN Unavailable [phone] Bernie Mirza RN Unavailable AMBROCIO [email or web address] Burak Moses MD Primary Care Provider [phone] Chaim Woo MD Unavailable [phone]- [phone] Kevin Hill MD Unavailable Burak Moses MD Unavailable Maureen Hunter MD Unavailable Sadi Mendiola MD Unavailable Burak Moses MD Unavailable Ryan Hidalgo MD Unavailable [phone] Encounter Details Date Type Department Care Team (Late st Contact Info) Description 10/23/2018 Procedure Pass DF IMG OUTSIDE IMG [address] [place] [address] Social History Tobacco Use Types Packs/Day Years Used Date Smoking Tobacco: Never Assessed Sex and Gender Information Value Date Recorded Sex Assigned at Male 10/02/2022 8:48 AM EST Legal Sex Male 10:36 PM EDT Gender Identity Male 11/20/2020 5:16 PM EDT Sexual Orientation Straight 11/20/2020 5: 16 PM EDT documented as of this encounter Plan of Treatment Upcoming Encounters Date Type Department Care Team (Late st Contact Info) Description 07/20/2025 10:00 AM EST Office Visit [facility] Internal Medicine [address] [place] [address] Burak Moses MD [address] [place] [address] [email or web address] 08/02/2025 10:20 AM EST Office Visit [facility] at [address] [address] Martha Curtis MBBS [address] [place] [address] [email or web address] 02/28/2026 10:30 AM EDT Appointment Department of Radiation Oncology [address] [place] [address] Carrie Patterson PA-C [address] [place], [place] [address]am [place] [address] [email or web address] documented as of this encounter Visit Diagnoses Not on filedocumented in this encounter Additional Health Concerns Infection Onset Date Last Indicated Resolved Time CoV-Exposed Comment:Recent close contact documented in the COVID-19 Amb Triage Form 08/30/2021 08/31/2021 09/24/2021 1:[address] documented as of this encounter Care Teams Supervisor Core Shop Relationship Specialty Start Date End Date Burak Moses MD [address] [place] [address] [email or web address] PCP - General Internal Medicine 09/30/18 09/22/19 Burak Moses MD [address] [place] [address] [email or web address] PCP - General Internal Medicine 09/23/19 Ines Munoz MD [address] [facility] [address] [place] [address] [email or web address] Primary Oncologist Medical Oncology 10/23/18 Michael Keller MD, MPH [address] [place] [address] [email or web address] Urology 10/23/18 Jeanine Pollard, MG [address] [place], [place] REZA@[email or web address] Primary Infusion Nurse 11/05/18 Bryan Purvis MD, PhD [address] [place] [address], [facility] [address] [place] [address] [email or web address] Radiation Oncology 04/22/19 Shyam Pacheco RN 450 [facility], [facility] [address] [place] [address] [email or web address] Associate Infusion Nurse 07/23/19 11/18/22 Bernie Mirza, MG [address] [place] [address] [email or web address] Associate Infusion Nurse 07/23/19 Chaim Woo MD [address] [place] [address] Consulting Provider Cardiology 11/11/19 Kevin Hill MD [address] [place] [phone] [email or web address] Primary Oncologist Hematology and Oncology 08/09/20 02/21/21 Burak Moses MD [address] [place] [address] [email or web address] Insurance Assigned Provider 12/10/20 09/08/22 Maureen Hunter MD [address] [place] [address] [email or web address] Historical LMR Provider Hematology and Oncology 02/22/21 06/03/22 Sadi Mendiola MD [address] [place] [address] [email or web address] Primary Oncologist Hematology and Oncology 12/02/21 Burak Moses MD [address] [place] [address] [email or web address] Insurance Assigned Provider 12/07/23 Ryan Hidalgo MD [address] [place] [address] [address] [place] [address] [email or web address] Primary Oncologist Medical Oncology 12/12/23 documented as of this encounter Additional Source Comments The information contained in this document represents components of the legal health record. It is not the complete legal health record.[facility]
--- OUTSIDE RECORDS SUMMARY | 2025-05-12 11:51 | XMS_ITS | Encounter Summary ---
Author Organization [facility] Address [address] [facility] [address] [place] [address] Phone Care Team Providers Care Litigation Assistant Name Role Phone Ines Munoz MD Unavailable [phone] Michael Keller MD, MPH Unavailable [phone] Jeanine Pollard RN Unavailable ALYCIA [email or web address] Bryan Purvis MD, PhD Unavailable [phone] Shyam Pacheco RN Unavailable [phone] Bernie Mirza RN Unavailable AMBROCIO [email or web address] Burak Moses MD Primary Care Provider [phone] Chaim Woo MD Unavailable + [phone] Burak Moses MD Unavailable Maureen Hunter MD Unavailable Sadi Mendiola MD Unavailable [phone] Burak Moses MD Unavailable Ryan Hidalgo MD Unavailable [phone] Encounter Details Date Type Department Care Team (Late st Contact Info) Description 08/31/2021 Ancillary Orders [facility] at [facility] [address] [place] [address] Maureen Hunter MD [address] [place] [id number] [email or web address] Liver mass Social History Tobacco Use Types Packs/Day Years Used Date Smoking Tobacco: Never Smokeless Tobacco: Never Alcohol Use Standard Drinks/Week Comments Yes 0 (1 standard drink = 0.6 oz pur e alcohol) rare Sex and Gender Information Value Date Recorded [...] Description 07/20/2025 10:00 AM EST Office Visit [facility] Internal Medicine [address] [place] [address] Burak Moses MD [address] [place] [address] [email or web address] 08/02/2025 10:20 AM EST Office Visit [facility] at [facility] [address] [place] [address] Martha Curtis MBBS [address] [place] [address] [email or web address] 02/28/2026 10:30 AM EDT Appointment Department of Radiation Oncology [address] [place] [address] Carrie Patterson PA-C [address] [place], [place] [address]am [place] [address] [email or web address] documented as of this encounter Results * US ABDOMEN LIMITED RIGHT UPPER QUADRANT (08/31/2021 10:21 AM EST) Anatomical Region Laterality Modality Abdomen Ultrasound 08/31/2021 10:3 1 AM EST Impressions 08/31/2021 10:38 AM EST 1.Findings consistent with focal hepatic fat. No liver masses. 2.Hepatic steatosis. Narrative 08/31/2021 10:38 AM EST COMPARISON: CT abdomen pelvis 08/23/2021. LIMITED ABDOMEN ULTRASOUND FINDINGS: Liver: Corresponding to the hyperattenuating left hepatic lobe finding on CT there is a geographic hypoechoic area with ill-defined margins measuring 3.7 x 3.4 x 4.7 cm. No mass effect. Overall diffuse increased hepatic echogenicity. Gallbladder: Normal. Common bile duct: Normal-5 mm. Pancreas: Limited. Imaged pancreas is normal. The pancreatic tail is obscured by bowel gas. Right Kidney: No hydronephrosis. Proximal abdominal aorta/IVC/Main Portal Vein: Unremarkable. Procedure Note Jake Forbes MD - 08/31/2021 COMPARISON: CT abdomen pelvis 08/23/2021. LIMITED ABDOMEN ULTRASOUND FINDINGS: Liver: Corresponding to the hyperattenuating left hepatic lobe finding onCT there is a geographic hypoechoic area with ill-defined marginsmeasuring 3.7 x 3.4 x 4.7 cm. No mass effect. Overall diffuse increasedhepatic echogenicity. Gallbladder: Normal. Common bile duct: Normal-5 mm. Pancreas: Limited. Imaged pancreas is normal. The pancreatic tail isobscured by bowel gas. Right Kidney: No hydronephrosis. Proximal abdominal aorta/IVC/Main Portal Vein: Unremarkable. IMPRESSION: 1.Findings consistent with focal hepatic fat. No liver masses. 2.Hepatic steatosis. us Maureen Hunter MD [facility] US ABDOMEN Final Result documented in this encounter Visit Diagnoses Diagnosis Liver mass Unspecified disorder of liver Liver mass Unspecified disorder of liver documented in this encounter Additional Health Concerns Infection Onset Date Last Indicated Resolved Time CoV-Exposed Comment:Recent close contact documented in the COVID-19 Amb Triage Form 08/30/2021 08/31/2021 09/24/2021 1:[address] Assessment Noted Time PHQ-2 Depression Total Score: 0 09/24/19 8:34 AM EST documented as of this encounter Care Teams Litigation Assistant Relationship Specialty Start Date End Date Burak Moses MD [address] [place] [address] [email or web address] PCP - General Internal Medicine 09/23/19 Ines Munoz MD [address] [address] [email or web address] Primary Oncologist Medical Oncology 10/23/18 Michael Keller MD, MPH [address] [place] [address] [email or web address] Urology 10/23/18 Jeanine Pollard, MG [address] [place], [place] REZA@[email or web address] Primary Infusion Nurse 11/05/18 Bryan Purvis MD, PhD [address] [place] [address], [facility] [address] [place] [address] [email or web address] Radiation Oncology 04/22/19 Shyam Pacheco RN 450 [facility], [facility] [address] [place] [address] [email or web address] Associate Infusion Nurse 07/23/19 11/18/22 Bernie Mirza, MG [address] [place] [address] [email or web address] Associate Infusion Nurse 07/23/19 Chaim Woo MD [address] [place] [address] Consulting Provider Cardiology 11/11/19 Burak Moses MD [address] [place] [address] [email or web address] Insurance Assigned Provider 12/10/20 09/08/22 Maureen Hunter MD [address] [place] [address] [email or web address] Historical LMR Provider Hematology and Oncology 02/22/21 06/03/22 Sadi Mendiola MD [address] [place] [address] [email or web address] Primary Oncologist Hematology and Oncology 12/02/21 Burak Moses MD [address] [place] [address] [email or web address] Insurance Assigned Provider 12/07/23 Ryan Hidalgo MD [address] [place] [address] [address] [email or web address] Primary Oncologist Medical Oncology 12/12/23 documented as of this encounter Additional Source Comments The information contained in this document represents components of the legal health record. It is not the complete legal health record.[facility]
--- OUTSIDE RECORDS SUMMARY | 2025-05-12 11:51 | XMS_ITS | Encounter Summary ---
Author Organization [facility] Address [address] [facility] [address] [place] [address] Phone Care Team Providers Care Continuous Yarn Dyeing Machine Operator Name Role Phone Ines Munoz MD Unavailable [phone] Michael Kleler MD, MPH Unavailable [phone] Jeanine Pollard RN Unavailable ALYCIA [email or web address] Bryan Purvis MD, PhD Unavailable [phone] Bernie Mirza RN Unavailable AMBROCIO [email or web address] Burak Moses MD Primary Care Provider [phone] Chaim Woo MD Unavailable [phone] Sadi Mendiola MD Unavailable [phone] Burak Moses MD Unavailable Ryna Hidalgo MD Unavailable [phone] Encounter Details Date Type Department Care Team (Late st Contact Info) Description 12/19/2023 Procedure Pass [facility], Ct Scan - [facility] [address] [place] [address] Social History Tobacco Use Types Packs/Day Years [...] Description 07/20/2025 10:00 AM EST Office Visit [facility] Internal Medicine [address] [place] [address] Burak Moses MD [address] [place] [address] [email or web address] 08/02/2025 10:20 AM EST Office Visit [facility] at [address] [address] Martha Curtis MBBS [address] [place] [address] [email or web address] 02/28/2026 10:30 AM EDT Appointment Department of Radiation Oncology [address] [place] [address] Carrie Patterson PA-C [address] [place], [place] [address]am [place] [address] [email or web address] documented as of this encounter Visit Diagnoses Not on filedocumented in this encounter Additional Health Concerns Assessment Noted Time PHQ-2 Depression Total Score: 0 10/02/19 23 8:40 AM EST documented as of this encounter Care Teams Continuous Yarn Dyeing Machine Operator Relationship Specialty Start Date End Date Burak Moses MD [address] [place] [address] [email or web address] PCP - General Internal Medicine 09/23/19 Ines Munoz MD [address] [place] [address] [address] [place] [address] [email or web address] Primary Oncologist Medical Oncology 10/23/18 Michael Keller MD, MPH [address] [place] [address] [email or web address] Urology 10/23/18 Jeanine Pollard, MG [address] [place] [address] [email or web address] Primary Infusion Nurse 11/05/18 Bryan Purvis MD, PhD [address] [place] [address], [facility] [address] [place] [address] [email or web address] Radiation Oncology 04/22/19 Bernie Mirza RN [address] [place] [address] [email or web address] Associate Infusion Nurse 07/23/19 Chaim Woo MD [address] [place] [phone] Consulting Provider Cardiology 11/11/19 Sadi Mendiola MD [address] [place] [address] [email or web address] Primary Oncologist Hematology and Oncology 12/02/21 Burak Moses MD [address] [place] [address] [email or web address] Insurance Assigned Provider 12/07/23 Ryan Hidalgo MD [address] [place] [address] [email or web address] Primary Oncologist Medical Oncology 12/12/23 documented as of this encounter Additional Source Comments The information contained in this document represents components of the legal health record. It is not the complete legal health record.[facility]
--- OUTSIDE RECORDS SUMMARY | 2025-05-12 11:51 | XMS_ITS | Encounter Summary ---
Author Organization [facility] Address [address] [facility] [address] [place] [address] Phone Care Team Providers Care Carpenter And Joiner Name Role Phone Ines Munoz MD Unavailable [phone] Michael Keller MD, MPH Unavailable [phone] Jeanine Pollard RN Unavailable ALYCIA [email or web address] Bryan Purvis MD, PhD Unavailable [phone] Shyam Pacheco RN Unavailable [phone] Bernie Mirza RN Unavailable AMBROCIO [email or web address] Burak Moses MD Primary Care Provider [phone] Chaim Woo MD Unavailable + [phone] Burak Moses MD Unavailable Maureen Hunter MD Unavailable Sadi Mendiola MD Unavailable [phone] Burak Moses MD Unavailable Ryan Hidalgo MD Unavailable [phone] Encounter Details Date Type Department Care Team (Late st Contact Info) Description 08/21/2021 Procedure Pass [facility], Ct Scan - [address] [address] Social History Tobacco Use Types Packs/Day Years [...] Description 07/20/2025 10:00 AM EST Office Visit [facility] Internal Medicine [address] [place] [address] Burak Moses MD [address] [place] [address] [email or web address] 08/02/2025 10:20 AM EST Office Visit [facility] at [address] [address] Martha Curtis MBBS [address] [place] [address] [email or web address] 02/28/2026 10:30 AM EDT Appointment Department of Radiation Oncology [address] [place] [address] Carrie Patterson PA-C [address] [place] [address] [place] [address] [email or web address] documented as of this encounter Visit Diagnoses Not on filedocumented in this encounter Additional Health Concerns Infection Onset Date Last Indicated Resolved Time CoV-Exposed Comment:Recent close contact documented in the COVID-19 Amb Triage Form 08/30/2021 08/31/2021 09/24/2021 1:[address] Assessment Noted Time PHQ-2 Depression Total Score: 0 09/24/19 8:34 AM EST documented as of this encounter Care Teams Carpenter And Joiner Relationship Specialty Start Date End Date Burak Moses MD [address] [place] [address] [email or web address] PCP - General Internal Medicine 09/23/19 Ines Munoz MD [address] [place] [address] [email or web address] Primary Oncologist Medical Oncology 10/23/18 Michael Keller MD, MPH [address] [place] [address] [email or web address]@[email or web address] Urology 10/23/18 Jeanine Pollard RN [address] [place] [address] [email or web address] Primary Infusion Nurse 11/05/18 Bryan Purvis MD, PhD [address] [place] [address], [address] [address] [email or web address] Radiation Oncology 04/22/19 Shyam Pacheco RN [address] [place] [address], [address] [address] [email or web address] Associate Infusion Nurse 07/23/19 11/18/22 Bernie Mirza RN [address] [place], [place] [email or web address] Associate Infusion Nurse 07/23/19 Chaim Woo MD [address] [place] [address] [phone] Consulting Provider Cardiology 11/11/19 Burak Moses MD [address] [place] [address] [email or web address] Insurance Assigned Provider 12/10/20 09/08/22 Maureen Hunter MD [address] [place] [address] [email or web address] Historical LMR Provider Hematology and Oncology 02/22/21 06/03/22 Sadi Mendiola MD [address] [place] [address] [email or web address] Primary Oncologist Hematology and Oncology 12/02/21 Burak Moses MD [address] [place] [address] [email or web address] Insurance Assigned Provider 12/07/23 Ryan Hidalgo MD [address] [place] [address] [address] [place] [address] [email or web address] Primary Oncologist Medical Oncology 12/12/23 documented as of this encounter Additional Source Comments The information contained in this document represents components of the legal health record. It is not the complete legal health record.[facility]
--- OUTSIDE RECORDS SUMMARY | 2025-05-12 11:51 | XMS_ITS | Encounter Summary ---
Author Organization [facility] Address [address] [facility] [address] [place] [address] Phone Care Team Providers Care Sod Farmer Name Role Phone Burak Moses MD Primary Care Provider [phone] Ines Munoz MD Unavailable [phone] Michael Keller MD, MPH Unavailable [phone] Jeanine Pollard RN Unavailable ALYCIA [email or web address] Bryan Purvis MD, PhD Unavailable [phone] Shyam Pacheco RN Unavailable [phone] Bernie Mirza RN Unavailable AMBROCIO [email or web address] Burak Moses MD Primary Care Provider [phone] Chaim Woo MD Unavailable [phone] Kevin Hill MD Unavailable Burak Moses MD Unavailable Maureen Hunter MD Unavailable Sadi Mendiola MD Unavailable Burak Moses MD Unavailable Ryan Hidalgo MD Unavailable [phone] Encounter Details Date Type Department Care Team (Late st Contact Info) Description 10/07/2018 Procedure Pass [facility] [address] [place] [address] Social History Tobacco Use Types Packs/Day Years [...] Description 07/20/2025 10:00 AM EST Office Visit [facility] Internal Medicine [address] [place] [address] Burak Moses MD [address] [place] [address] [email or web address] 08/02/2025 10:20 AM EST Office Visit [facility] at [address] [address] Martha Curtis MBBS [address] [place] [address] [email or web address] 02/28/2026 10:30 AM EDT Appointment Department of Radiation Oncology [address] [place] [address] Carrie Patterson PA-C [address] [place], [place] [address]am [place] [address] [email or web address] documented as of this encounter Visit Diagnoses Not on filedocumented in this encounter Additional Health Concerns Infection Onset Date Last Indicated Resolved Time CoV-Exposed Comment:Recent close contact documented in the COVID-19 Amb Triage Form 08/30/2021 08/31/2021 09/24/2021 1:[address] documented as of this encounter Care Teams Sod Farmer Relationship Specialty Start Date End Date Burak Moses MD [address] [place] [address] [email or web address] PCP - General Internal Medicine 09/30/18 09/22/19 Burak Moses MD [address] [place] [address] PCP - General Internal Medicine 09/23/19 Ines Munoz MD [address] [place] [address] [email or web address] Primary Oncologist Medical Oncology 10/23/18 Michael Keller MD, MPH [address] [place] [address] [email or web address] Urology 10/23/18 Jeanine Pollard RN [address] [place] [address] [email or web address]@[email or web address] Primary Infusion Nurse 11/05/18 Bryan Purvis MD, PhD [address] [place] [address], [facility] [address] [place] [address] [email or web address] Radiation Oncology 04/22/19 Shyam Pacheco RN [address] [place] [address], [address] [address] [email or web address] Associate Infusion Nurse 07/23/19 11/18/22 Bernie Mirza RN [address] [place] [address] TERRA@[email or web address] Associate Infusion Nurse 07/23/19 Chaim Woo MD 40 [place] [phone] Consulting Provider Cardiology 11/11/19 Kevin Hill MD [address] [place] [phone] [email or web address] Primary Oncologist Hematology and Oncology 08/09/20 02/21/21 Burak Moses MD [address] [place] [address] [email or web address] Insurance Assigned Provider 12/10/20 09/08/22 Maureen Hunter MD [address] [place] [address] [email or web address] Historical LMR Provider Hematology and Oncology 02/22/21 06/03/22 Sadi Mendiola MD [address] [place] [address] [email or web address] Primary Oncologist Hematology and Oncology 12/02/21 Burak Moses MD [address] [place] [address] Insurance Assigned Provider 12/07/23 Ryan Hidalgo MD [address] [place], [place] [address] [address] [place] [address] [email or web address] Primary Oncologist Medical Oncology 12/12/23 documented as of this encounter Additional Source Comments The information contained in this document represents components of the legal health record. It is not the complete legal health record.[facility]
--- OUTSIDE RECORDS SUMMARY | 2025-05-12 11:51 | XMS_ITS | Encounter Summary ---
Author Organization [facility] Address [address] [facility] [address] [place] [address] Phone Care Team Providers Care Health And Wellness Sales Consultant Name Role Phone Burak Moses MD Primary Care Provider Ines Munoz MD Unavailable [phone] Michael Keller MD, MPH Unavailable [phone] Jeanine Pollard RN Unavailable ALYCIA [email or web address] Bryan Purvis MD, PhD Unavailable [phone] Shyam Pacheco RN Unavailable [phone] Bernie Mirza RN Unavailable AMBROCIO [email or web address] Burak Moses MD Primary Care Provider [phone] Chaim Woo MD Unavailable [phone] Kevin Hill MD Unavailable Burak Moses MD Unavailable Maureen Hunter MD Unavailable Sadi Mendiola MD Unavailable Burak Moses MD Unavailable Ryan Hidalgo MD Unavailable [phone] Encounter Details Date Type Department Care Team (Late st Contact Info) Description 11/25/2018 Telephone [facility], [facility] [place] [address] [facility], [address] [place] [address] Rani Ahn, RN [address] [place] [address] Social History Tobacco Use Types Packs/Day Years [...] Description 07/20/2025 10:00 AM EST Office Visit [facility] Internal Medicine 40 [place] [address] Burak Moses MD [address] [place] [address] [email or web address] 08/02/2025 10:20 AM EST Office Visit [facility] at [address] [address] Martha Curtis MBBS [address] [place] [address] [email or web address] 02/28/2026 10:30 AM EDT Appointment Department of Radiation Oncology [address] [place] [address] Carrie Patterson PA-C [address] [place] [address] [place] [address] [email or web address] documented as of this encounter Visit Diagnoses Not on filedocumented in this encounter Additional Health Concerns Infection Onset Date Last Indicated Resolved Time CoV-Exposed Comment:Recent close contact documented in the COVID-19 Amb Triage Form 08/30/2021 08/31/2021 09/24/2021 1:[address] documented as of this encounter Care Teams Health And Wellness Sales Consultant Relationship Specialty Start Date End Date Burak Moses MD [address] [place] [address] [email or web address] PCP - General Internal Medicine 09/30/18 09/22/19 Burak Moses MD [address] [place] [address] [email or web address] PCP - General Internal Medicine 09/23/19 Ines Munoz MD [address] [place] [address] [email or web address] Primary Oncologist Medical Oncology 10/23/18 Michael Keller MD, MPH [address] [place] [address] [email or web address] Urology 10/23/18 Jeanine Pollard RN [address] [place] [address] [email or web address] Primary Infusion Nurse 11/05/18 Bryan Purvis MD, PhD [address] [place] [address] [email or web address] Radiation Oncology 04/22/19 Shyam Pacheco RN [address] [place] [address], [address] [address] [email or web address] Associate Infusion Nurse 07/23/19 11/18/22 Bernie Mirza, MG [address] [place] [address] [email or web address]@[email or web address] Associate Infusion Nurse 07/23/19 Chaim Woo MD [address] [place] [phone] Consulting Provider Cardiology 11/11/19 Kevin Hill MD [address] [place] [phone] [email or web address] Primary Oncologist Hematology and Oncology 08/09/20 02/21/21 Burak Moses MD [address] [place] [address] [email or web address] Insurance Assigned Provider 12/10/20 09/08/22 Maureen Hunter MD [address] [place] [address] [email or web address] Historical LMR Provider Hematology and Oncology 02/22/21 06/03/22 Sadi Mendiola MD [address] [place] [address] [email or web address] Primary Oncologist Hematology and Oncology 12/02/21 Burak Moses MD [address] [place] [address] Insurance Assigned Provider 12/07/23 Ryan Hidalgo MD [address] [place] [address] [address] [place] [address] [email or web address] Primary Oncologist Medical Oncology 12/12/23 documented as of this encounter Additional Source Comments The information contained in this document represents components of the legal health record. It is not the complete legal health record.[facility]
== END 2025-05-12 10:31 | disposition home or self-care (01) ==
LOC: HO.HUSH 09:50
PROVIDERS: PCP Internal Medicine; Visit Provider Urology
DX: N30.40 Irradiation cystitis without hematuria (principal); R35.1 Nocturia; R39.15 Urgency of urination
CPT/HCPCS: 99213; G2211

== ENCOUNTER 2025-08-12 08:59 | Outpatient (AMB) | payer MEDICARE, SELFPAY ==
--- NOTE | 2025-08-12 08:59 | MHC.OFFVIS ---
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 He is a patient of . He is seen for the following urologic conditions - prostate cancer - radiation cystitis with urgency and frequency - background diabetes Three-month follow-up lab work - 07/27 0.25 T 588 Myrbetriq to strong Came off medications Still waking 4 times at night Trial trospium UA today negative blood, negative leukocytes, negative nitrites. No evidence of infection Prostate cancer - grade group 3 T3 disease on MRI initial therapy external beam radiation 03/20 DFCI PSA at diagnosis 6.5 MRI at diagnosis 3 cm peripheral zone midline PI-RADS 5 with seminal vesicle extension Biopsy 09/20 7 cores positive, [place] 3 + 4 Initial therapy - EXBRT 03/20 7920 Gy prostate 5040 Gy pelvis [facility] - concurrent hormone therapy - therapy course halted early secondary to cardiac manifestations of hormone suppression PSA - 11/22 0.26 T 360, 02/23 PSA stable PFSH Medical History Colon polyps Hyperlipidemia Type 2 diabetes mellitus CAD (coronary artery disease) Prostate cancer Surgical History Hx of wisdom tooth extraction History of tonsillectomy and adenoidectomy Hx of appendectomy Stented coronary artery H/O colonoscopy Social History Patient Tobacco Use Status: Never used Tobacco Office Procedures Post Void Residual Post Residual Void Post Void Residual (PVR): 28 [id number] Void Residual by ultrasound Results AMB Urinalysis, Automated UA Leukoctes 0 Freddy/uL Last Edit by VASILIY Wolfe on 08/12/25 09:18 UA Nitrite Negative Last Edit by Falguni Colon, [facility] on 08/12/25 09:18 UA Urobilinogen 0.2 mg/dL Last Edit by [facility], [facility] on 08/12/25 09:18 UA Protein 0 mg/dL Last Edit by Falguni Colon, [facility] on 08/12/25 09:18 UA pH 6.5 Last Edit by Falguni Colon, [facility] on 08/12/25 09:18 UA Blood 0 Chuy/uL Last Edit by Falguni Colon, [facility] on 08/12/25 09:18 UA Specific [place] 1.005 Last Edit by Falguni Colon, [facility] on 08/12/25 09:18 UA Ketone Negative Last Edit by Falguni Colon, [facility] on 08/12/25 09:18 UA Bilirubin 0 mg/dL Last Edit by Falguni Colon, [facility] on 08/12/25 09:18 UA Glucose 0 mg/dL Last Edit by Falguni Colon, [facility] on 08/12/25 09:18 Results Reviewed Results Reviewed: Laboratory Last Values Urine pH (Auto) 6.5 08/12/25 09:18 Specific [place] (Auto) 1.005 08/12/25 09:18 Urine Protein (Auto) 0 mg/dL 08/12/25 09:18 Glucose (UA)(Auto) 0 mg/dL 08/12/25 09:18 Urine Ketones (Auto) Negative 08/12/25 09:18 Urine Blood (Auto) 0 Chuy/uL 08/12/25 09:18 Urine Nitrite (Auto) Negative 08/12/25 09:18 Urine Bilirubin (Auto) 0 mg/dL 08/12/25 09:18 Urine Urobilinogen (Auto) 0.2 mg/dL 08/12/25 09:18 Leukocyte Esterase (Auto) 0 Freddy/uL 08/12/25 09:18 Assessment & Plan Assessment & Plan (1) Prostate cancer: Code(s): C61 - Malignant neoplasm of prostate Category: Medical (2) Nocturia more than twice per night: Code(s): R35.1 - Nocturia Category: Medical Plan Trial trospium Orders: Orders AMB Post Void Residual by ultrasound Today N40.1 - Benign prostatic hyperplasia with lower urinary tract symptoms AMB Urinalysis Automated Today N13.8 - Other obstructive and reflux uropathy, N40.1 - Benign prostatic hyperplasia with lower urinary tract symptoms Medications: New trospium ER must be taken on empty stomach at least 1 hour before a meal/food with water only 60 mg PO DAILY 30 caps 3RF 30 days N30.40 - Irradiation cystitis without hematuria Discontinued Myrbetriq ER (mirabegron) Discontinued Reason: Doctor's Order 25 mg PO DAILY 30 tabs 2RF NS oxybutynin chloride ER Discontinued Reason: Doctor's Order 10 mg PO DAILY 90 days 90 tabs 1RF N32.81 - Overactive bladder, R39.15 - Urgency of urination Patient Instructions: This note is constructed using voice recognition software. While every effort has been made to ensure accuracy organizational development manager errors may have been included. Imaging studies, laboratory and physical exam results were discussed and reviewed in detail. No major barriers to patient understanding were identified. An opportunity to ask questions regarding the treatment plan was provided. All questions were answered. The patient expressed understanding and agreement with the above treatment plan. The patient is aware they should contact our office by phone for worsening of their current condition or the appearance of new urologic symptoms. Compliance is encouraged with any medications and followup testing that is ordered. It is a privilege to participate in the urologic care of your patient. If you have any questions or concerns regarding treatment for the above conditions, or other urologic issues, please do not hesitate to contact me. The office telephone contact is [phone]. Sincerely, Dr Ric Romero MD, P[facility]RO [facility] - Urology Compassionate Specialist Care for the Genitourinary System Coding Level of Care Code Est Pt Level 4 (97328) Add On Problem Visit Only Diagnoses Prostate cancer C61 Nocturia more than twice per night R35.1 CPT Codes Post Residual Void - PVR CPT Code: 71968-Uvxg Void Residual by ultrasound ([id number])
== END 2025-08-12 09:43 | disposition home or self-care (01) ==
LOC: HO.HUSH 08:59
PROVIDERS: PCP Internal Medicine; Visit Provider Urology
DX: N40.1 Benign prostatic hyperplasia with lower urinary tract symptoms (principal); N13.8 Other obstructive and reflux uropathy; C61 Malignant neoplasm of prostate; R35.1 Nocturia
CPT/HCPCS: 99214; G2211

== ENCOUNTER → 2025-08-12 08:59 | Outpatient (BNVA) | payer MEDICARE, SELFPAY | PROVIDERS: PCP Internal Medicine; Visit Provider Urology | DX: R35.1 Nocturia (principal); C61 Malignant neoplasm of prostate | CPT/HCPCS: 51798; 81003; 99212 ==